=== PATIENT | female | born 1940 | race Caucasian/White ===

== ENCOUNTER 2016-10-17 12:56 | Inpatient (IN) | payer MEDICARE, OTHER ==
[~2016-10-17] VITALS: Ht 154.9 cm; Wt 74.2 kg
[2016-10-17] MEDS ORDERED: VITA10002 PO (13:35)
[2016-10-17] MEDS ORDERED: EVEN10003 PO (13:35)
[2016-10-17] MEDS ORDERED: MAGNSOL PO (13:35)
[2016-10-17] MEDS ORDERED: VITA100T98 PO (13:35)
[2016-10-17] MEDS ORDERED: DEXI60CA PO (13:35)
[2016-10-17] MEDS ORDERED: AMIL5TA PO (13:35)
[2016-10-17] MEDS ORDERED: CO Q100C10 PO (13:35)
[2016-10-17] MEDS ORDERED: VENL37CA PO (13:35)
[2016-10-17] MEDS ORDERED: TURM500C3 PO (13:35)
[2016-10-17] MEDS ORDERED: LOSA50TA20 PO (13:35)
[2016-10-17] MEDS ORDERED: ATEN25TA PO (13:35)
[2016-10-17] MEDS ORDERED: MILK175C7 PO (13:35)
[2016-10-17] MEDS ORDERED: VITA50003 PO (13:35)
[2016-10-17] MEDS ORDERED: ESTR3TA PO (13:35)
[2016-10-17] MEDS ORDERED: CALC600T10 PO (13:35)
[2016-10-17] MEDS ORDERED: VITA-130 PO (13:35)
--- NOTE | 2016-10-17 13:36 | REP ---
CT HEAD WITHOUT CONTRAST: HISTORY: Headache. There is no intraparenchymal hemorrhage, mass, or midline shift. The ventricular system and cortical sulci are dilated consistent with minimal volume loss. There is no extracerebral collection. Mucosal thickening is present in the ethmoid sinuses. IMPRESSION: Minimal volume loss. Signed by Francisco Jamison MD 10/17/2016 01:46 P
[2016-10-17] MEDS ORDERED: METOCLOPRAMIDE INJ 10MG/2ML VIAL (J2765) IV ONE (13:45)
[2016-10-17] MEDS ORDERED: NS 500 ML IV ONE (13:45)
[2016-10-17] MEDS ORDERED: diphenhydrAMINE INJ 50MG/ML VIAL (J1200) IV ONE (13:45)
[2016-10-17 13:57] LABS: BASO % 0.3 % (0.0-1.0); EOS # 0.2 K/mm3 (0.0-0.50); EOS % 1.5 % (0.0-3.0); LARGE UNSTAINED CELL # 0.1 K/mm3 (0.0-0.4); LARGE UNSTAINED CELL % 1.2 % (0.0-4.0); LYMPH # 2.5 K/mm3 (1.5-4.5); MEAN CORPUSCULAR HEMOGLOBIN 30.2 pg (27.0-33.0); MEAN CORPUSCULAR HGB CONC 32.2 g/dl (32.0-36.5); MEAN CORPUSCULAR VOLUME 93.7 fl (80.0-96.0); MONO # 0.5 K/mm3 (0.0-0.8); MONO % 5.2 % (0.0-5.0); NEUTROPHILS # 6.4 K/mm3 (1.8-7.7); NEUTROPHILS % 66.8 % (36.0-66.0); PLATELET COUNT, AUTOMATED 213 k/mm3 (150-450); WHITE BLOOD COUNT 9.6 K/mm3 (4.0-10.0)
[2016-10-17 14:11] LABS: INR 0.96
[2016-10-17 14:24] LABS: ALBUMIN/GLOBULIN RATIO 1.38 (1.00-1.93); ALKALINE PHOSPHATASE 82 U/L (45-117); ALT/SGPT 26 U/L (12-78); ANION GAP 10 MEQ/L (8-16); AST/SGOT 14 U/L (15-37); BILIRUBIN,DIRECT < 0.1 MG/DL (0.0-0.2); BILIRUBIN,TOTAL 0.2 MG/DL (0.2-1.0); BLOOD UREA NITROGEN 17 MG/DL (7-18); CALCIUM LEVEL 8.8 MG/DL (8.8-10.2); CARBON DIOXIDE LEVEL 26 MEQ/L (21-32); CHLORIDE LEVEL 104 MEQ/L (98-107); CREATININE FOR GFR 0.77 MG/DL (0.55-1.02); GLOMERULAR FILTRATION RATE > 60.0 (>39); GLUCOSE, FASTING 126 MG/DL (83-110); POTASSIUM SERUM 4.6 MEQ/L (3.5-5.1); SODIUM LEVEL 140 MEQ/L (136-145); TOTAL PROTEIN 6.9 GM/DL (6.4-8.2)
--- NOTE | 2016-10-17 15:02 | REP ---
PORTABLE CHEST: AP portable view of the chest is performed. There is cardiomegaly. There is calcification and tortuosity of the thoracic aorta. The mediastinal silhouette otherwise appears unremarkable. There is no acute infiltrate or pulmonary edema. IMPRESSION: Cardiomegaly. No acute infiltrate or pulmonary edema. Signed by Nagi Kong MD 10/17/2016 04:18 P
[2016-10-17] MEDS ORDERED: ONDANSETRON 4MG/2ML VIAL (J2405) IV PRN (17:00)
[2016-10-17] MEDS ORDERED: MAGN100T PO (17:02)
[2016-10-17] MEDS ORDERED: ADVI200T PO (17:02)
--- NOTE | 2016-10-17 17:38 | ECGEPIP ---
Stationary ECG Study [facility] - ED Test Date: 2016-10-17 Pat Name: TRAMAINE HERRON Department: Room: - Gender: F Rn Clinical: ct : 1940 Requested By: NATACHA DE JESUS Order Number: [id number] Reading MD: Jermaine Matthews Measurements Intervals [place] Rate: 75 P: 25 IA: 189 QRS: -47 QRSD: 85 T: 7 QT: 414 QTc: 465 Interpretive Statements SINUS RHYTHM NSTTW ABNORMALITIES NO PRIORS Electronically Signed On 10-17-2016 17:38:41 EDT by Jermaine Matthews
[2016-10-17] MEDS ORDERED: KETOROLAC 30 MG/ML VIAL (J1885) IV ONE (18:00)
--- NOTE | 2016-10-17 18:10 | HPEPDOC ---
General Date of Admission 10/17/2016 Primary Care Physician: FLORENTIN MACKEY DO Attending Physician: FRANCIS DÍAZ MD Chief Complaint The patient is a 76-year-old female admitted with a reason for visit of h/a, vomiting. Source: Patient, Family, RN notes reviewed, Old records Exam Limitations: No limitations Timing/Duration: This morning Associated Symptoms: Headaches (top of head and down back of neck with left eye involvement causing blurriness), Nausea, Vomiting (3 episodes) History of Present Illness Ms. Rodgers is a 76-year-old female who presents to [facility]'s emergency Department with confusion and vomiting. She is accompanied by her , her daughter, and her son-in-law. Patient is alert and oriented 4. Past medical history significant for hypertension, confusional migraines, gastroesophageal reflux disease, left cataract, history of hiatal hernia, history of gastric polyps, history of diverticulosis, history of hemorrhoids, history of colonic polyps, L5-S1 dichotomy. Patient states that she woke up this morning and was eating breakfast when her headache started. She reports that it is on the top of her head and radiates down the back of her neck and behind her eye, specifically her left eye with associated blurriness. She denies acute vision loss, diplopia. She admits to vomiting the contents of her stomach and has vomited 3 times. Family admits to increased and worsening confusion. They report that patient has a history of confusion, but that this episode is more severe than prior episodes. patient contacted daughter who came over. She states that when she approached her mother she initially did not recognize her. Family reports the patient did not recognize her granddaughter. Patient reports approximately 4-5 episodes of confusion with the first episode of confusion that occurred about 8-9 years ago when they were summering down in [place] and she did not recognize her own clothes in the cupboard. Her stated that this episode lasted about an hour and then she returned to her normal state of mind. Family and patient do state that she is able to remember her states of confusion. However, this episode of confusion today is something that she is not able to remember currently. She admits to nausea, night sweats, chills. Denies changes to taste, lymphadenopathy, weakness, dizziness, lightheadedness, paroxysmal nocturnal dyspnea, orthopnea. Patient does report that his ocular has been ill for the last 3 weeks with vomiting and diarrhea. States that the diarrhea is watery, mucousy, and bloody. She reports that this all started on 09/14/2016 and ended approximately a week ago. Patient reports a cough as well as sinus pressure. Initially presented to their primary care provider's office and were informed that they also be having a viral infection. Patient reports using cough syrup, soup for symptomatic relief and reports that she slept a lot. Also reports that she decreased taste. Patient says that her fluid intake has been decreased recently. Family does report the patient has been under an undue amount of stress as has recently been battling prostate cancer and a son just recently had a kidney removed secondary to kidney cancer. Hospitalist service was subsequently consulted and patient was admitted for further medical management. Home Medications Scheduled (Dexilant) 60 Mg Cap 60 MG PO DAILY (Reported) (Co Q 10) 100 Mg Cap 200 MG PO BID (Reported) Amiloride HCl (Amiloride HCl) 5 Mg Tab 5 MG PO DAILY (Reported) Ascorbic Acid (Vitamin C) 500 Mg Tab 500 MG PO DAILY (Reported) Atenolol (Atenolol) 25 Mg Tab 50 MG PO DAILY (Reported) Calcium (Calcium) 600 Mg Tab 600 MG PO QHS (Reported) Conjugated Estrogens (Premarin) 0.3 Mg Tab 0.3 MG PO Q2D (Reported) QHS Curcuma Longa (Turmeric) Extra (Turmeric) 500 Mg Cap 500 MG PO DAILY (Reported ) Cyanocobalamin (Vitamin B-12) 1,000 Mcg Tab 1,000 MCG PO DAILY (Reported) Ergocalciferol (Vitamin D) 50,000 Unit Cap 50,000 UNIT PO QWEEK (Reported) TAKES ON THURSDAYS Evening [place] Oil (Evening [place] Oil) 1,000 Mg Cap 1,000 MG PO QHS ( Reported) Ibuprofen (Advil) 200 Mg Tab 400 MG PO QHS (Reported) Losartan Potassium (Losartan Potassium) 50 Mg Tab 50 MG PO BID (Reported) Magnesium Citrate (Magnesium Citrate) 100 Mg Tab 100 MG PO QHS (Reported) Riboflavin (Vitamin B-2) 100 Mg Tab 100 MG PO BID (Reported) Silybum Marianum (Milk Thistle) 175 Mg Cap 175 MG PO DAILY (Reported) Venlafaxine HCl (Venlafaxine HCl ER) 37.5 Mg Cap 37.5 MG PO BID (Reported) Allergies Coded Allergies: Sulfa Antibiotics (Unverified Allergy, Unknown, 10/17/16) Erythromycin (Unverified Adverse Reaction, Unknown, VOMIT, 10/17/16) Past Medical History Medical History 1. Hypertension 2. Confusional migraines 3. Left cataract 4. Gastroesophageal reflux disease 5. History of nonbleeding internal hemorrhoids 6. History of gastric polyps 7. Hiatal hernia 8. Diverticulosis 9. History of colonic polyps Surgical History 1. Cholecystectomy 2. Heart catheterization 3. Appendectomy 4. Tonsillectomy 5. Hysterectomy 6. Peng procedure 7. Partial thyroidectomy 8. Back surgeries 9. Eyelid surgery 10. Colonoscopies 11. EGD Family History Significant Family History: Cancer (mother - colon and hepatic cancer; brother - pancreatic cancer), Diabetes (Brother), Heart disease (Brother - multiple pacemaker defibrillators), Hypertension (Brother), Other (Brother - multiple sclerosis) Social History * Smoker: former Smoker (remote history) Alcohol: other (2 glasses of red wine per evening) Recent Travel/Sick Contacts: Denies: Recent sick contacts, Recent travel Psychosocial History: Anxiety, Depression Lives independently with 5 adult children Denies pets in the home Denies environmental exposures Review of Symptoms Constitutional: Reports: Chills, Night Sweats, Denies: Fever, Weakness Eyes: Reports: Other (denies acute transient vision loss, peripheral vision loss, central vision loss, diplopia), Vision change (blurry vision) ENT: Reports: Head Aches (topic of head radiating down back of neck), Sinus Congestion Skin: Denies: Lesions, Rash Pulmonary: Reports: Cough, Dyspnea (with exertion), Denies: Pleuritic Chest Pain Cardiovascular: Denies: Chest Pain, Edema, Lt Headedness, Orthopnea, Palpitations, Paroxysmal Noc. Dyspnea Gastrointestinal: Reports: Diarrhea (recently improved), Nausea, Other Symptoms (hemorrhoidal bleeding (blood on TP)), Vomiting (contents of stomach), Denies: Abdominal Pain, Constipation, Hematochezia, Melena Genitourinary: Reports: Frequency (secondary to fluid intake of 80 - 100 ounces of water daily), Denies: Dysuria, Hematuria, Incontinence Hematologic: Denies: Bruising, Purpura Endocrine: Reports: Polydipsia Musculoskeletal: Reports: Back Pain, Neck Pain, Denies: Joint Pain, Muscle Pain Neurological: Reports: Confusion, Denies: Numbness, Weakness Psych: Reports: Anxiety, Depression Physical Examination General Exam: Positive: Alert, Cooperative, No Acute Distress Eye Exam: Positive: Conjunctiva & lids normal, EOMI, PERRLA, Negative: Sclera icteric ENT Exam: Positive: Atraumatic, Nares Patent, Pharynx Normal, Tongue Midline, Negative: Mucous membr. moist/pink (somewhat dry), Pharyngeal Edema Neck Exam: Positive: Supple, Negative: JVD, Lymphadenopathy, thyromegaly Chest Exam: Positive: Clear to auscultation, Normal air movement Heart Exam: Positive: Normal S1, Normal S2, Rate Normal, Regular Rhythm, Negative: Murmurs, Rubs Telemetry: Positive: No significant arrhythmia, Sinus Abdomen Exam: Positive: Normal bowel sounds, Soft, Negative: Hepatospenomegaly, Hernia, Mass, Tenderness Extremity Exam: Positive: Normal pulses, Negative: Clubbing, Cyanosis, Edema, Swelling, Tenderness Skin Exam: Positive: Nl turgor and temperature Neuro Exam: Positive: Cranial Nerves 3-12 NL, Normal Speech, Strength at 5/5 X4 ext Psych Exam: Positive: Oriented x [address] head without contrast IMPRESSION: Minimal volume loss Portable chest x-ray IMPRESSION: Cardiomegaly. No acute infiltrate or pulmonary edema. Vital Signs T 96.9 HR 80 RR 18 BP 169/71 O2 98% RA Height (in): 61 Weight (kg): 68.039 BMI (kg): 28.3 Laboratory Data Labs 24H Laboratory Tests 2 10/17/16 13:46: Aspartate Amino Transf (AST/SGOT) 14L, Alanine Aminotransferase (ALT/SGPT) 26, Alkaline Phosphatase 82, Total Bilirubin 0.2, Direct Bilirubin < 0.1, Albumin 4.0, Albumin/Globulin Ratio 1.38, Anion Gap 10, White Blood Count 9.6, Red Blood Count 4.15, Hemoglobin 12.5, Hematocrit 38.9, Mean Corpuscular Volume 93.7 , Mean Corpuscular Hemoglobin 30.2, Mean Corpuscular Hemoglobin Concent 32.2, Red Cell Distribution Width 13.0, Platelet Count 213, Neutrophils (%) (Auto) 66.8H, Lymphocytes (%) (Auto) 25.0, Monocytes (%) (Auto) 5.2H, Eosinophils (%) ( Auto) 1.5, Basophils (%) (Auto) 0.3, Neutrophils # (Auto) 6.4, Lymphocytes # ( Auto) 2.5, Monocytes # (Auto) 0.5, Eosinophils # (Auto) 0.2, Basophils # (Auto) 0.0, Calcium Level 8.8, Creatine Kinase MB 1.5, Creatine Kinase MB Relative Index 2.00, Glomerular Filtration Rate > 60.0, Large Unclassified Cells # 0.1, Large Unclassified Cells % 1.2, Prothromb Time International Ratio 0.96, Prothrombin Time 12.9, Thyroid Stimulating Hormone (TSH) 2.280, Total Creatine Kinase 75, Total Protein 6.9, Troponin I < 0.02 CBC/BMP Laboratory Tests 10/17/16 13:46 Red Blood Count 4.15, Mean Corpuscular Volume 93.7, Mean Corpuscular Hemoglobin 30.2, Mean Corpuscular Hemoglobin Concent 32.2, Red Cell Distribution Width 13.0 , Neutrophils (%) (Auto) 66.8 H, Lymphocytes (%) (Auto) 25.0, Monocytes (%) ( Auto) 5.2 H, Eosinophils (%) (Auto) 1.5, Basophils (%) (Auto) 0.3, Neutrophils # (Auto) 6.4, Lymphocytes # (Auto) 2.5, Monocytes # (Auto) 0.5, Eosinophils # ( Auto) 0.2, Basophils # (Auto) 0.0 Assessment/Plan Ms. Rodgers is a 76 year old female with a past medical history significant for hypertension and confusional migraines who presents with confusion is likely secondary to an acute complex migraine attack. Problems (1) Acute confusional migraine Status: Acute Problem Text: The patient has a history of confusional migraines Responded well to acute abortive treatment in the emergency department Intravenous fluid resuscitation with normal saline 50 mLs per hour Consider infectious causes - Obtain blood and urine cultures - Obtain gastrointestinal panel - Obtain respiratory panel Consider metabolic sources - Obtain liver profile - Obtain TSH - Obtain ESR Consider fluid and electrolyte disturbances - Received 500 mL bolus of intravenous normal saline in the emergency department - Monitor BMP (2) Hypertension Status: Chronic Problem Text: Continue her medications Monitor vital signs (3) Anxiety and depression Status: Chronic Problem Text: Continue home medication Plan / VTE VTE Prophylaxis Ordered?: Yes (Lovenox 40 mg subcutaneous daily) Plan Plan Acute confusional migraine Patient has a history of confusional migraine. CT of the head without contrast, chest x-ray, and EKG revealed nothing significant. Patient responded well in the emergency department to metoclopramide diphenhydramine. Administered one- time dose of Toradol in the emergency department to help alleviate patient's severe headache. Investigate other potential causes of acute confusion, such as infectious causes by obtaining a respiratory panel, gastrointestinal panel, blood cultures, and urine cultures. Also consider metabolic causes for confusion and will obtain liver profile, TSH, and ESR. Monitor patient's vital signs, CBC, and BMP. Could consider obtaining an MRI of the brain if patient's confusion returns or worsens. Providing intravenous fluid resuscitation with normal saline at 50 mLs per hour as patient appeared somewhat dry on physical assessment. Hypertension Patient's blood pressure at time of presentation was 169/71. We'll continue patient's amiloride, atenolol, and losartan. Continue to monitor daily vital signs. Anxiety and depression Continue patient's on her home medication. DVT prophylaxis: Lovenox 40 mg subcutaneous daily Diet: 2 g sodium Disposition Admit to the medical surgical unit Anticipated hospitalization: 2 nights Attending: Dr. Bhatti IVF: Initiate (normal saline at 50 mLs per hour) Diet: Continue Current (2 g sodium diet) Activity: Continue Current (activity as tolerated) Diagnostics: Check Labs, Repeat Labs in AM, Obtain Cultures Anticipated Discharge: Home TRAMAINE CEVALLOS Oct 17, 2016 18:10
[2016-10-17] MEDS ORDERED: NS 1,000 ML IV SCH (18:15)
--- NOTE | 2016-10-17 20:00 | REPUSA ---
MRI of the brain clinical history: headache. Technique: Multiecho multiplanar MRI images of the brain were obtained without administration of cont rast. Diffusion weighted images with ADC mapping was also obtained. Findings: The ventricles and sulci are symmetric bilaterally. The brain parenchyma demonstrates a few scattered foci of T2 hyperintensity in the subcortical white matter. There is no midline shift, mass effect, o r extra-axial fluid collection. The midline intracranial structures do not demonstrate any gross abno rmalities. The cervical cranial junction is intact. The orbits are unremarkable. The visualized paran simona sinuses and mastoid air cells are clear. The osseous structures and superficial soft tissues are unremarkable. The vascular structures demonstrate appropriate flow voids. Impression: No evidence of acute infarct. Minimal chronic small vessel ischemic changes. The ICU nurse was notified of these findings at 7:50 PM on 10/17/2016.
[2016-10-17 20:10] VITALS: BP 153/70
[2016-10-17] MEDS: CYANOCOBALAMIN 500 MCG TAB PO SCH (20:38)
[2016-10-17] MEDS: ATENOLOL 25 MG TAB PO SCH (20:39)
[2016-10-17] MEDS: LOSARTAN 50 MG TAB PO SCH (20:39)
[2016-10-17] MEDS: ASCORBIC ACID 500 MG TAB PO SCH (20:39)
[2016-10-17] MEDS: ENOXAPARIN 40 MG/0.4 ML SYRINGE (J1650) SC SCH (20:39)
[2016-10-17 20:50] LABS: ALBUMIN 3.6 GM/DL (3.2-5.2); ALBUMIN/GLOBULIN RATIO 1.71 (1.00-1.93); BILIRUBIN,DIRECT 0.1 MG/DL (0.0-0.2); BILIRUBIN,TOTAL 0.2 MG/DL (0.2-1.0); TOTAL PROTEIN 5.7 GM/DL (6.4-8.2)
[2016-10-17] MEDS ORDERED: ESTROGENS 0.3 MG TAB PO SCH (21:00)
[2016-10-17] MEDS: VENLAFAXINE **XR** 37.5 MG CAPSULE PO SCH (21:22)
[2016-10-17] MEDS: aMILoride 5 MG TAB PO SCH (21:22)
[2016-10-18 06:00] VITALS: BP 108/61
[2016-10-18 06:21] LABS: MEAN CORPUSCULAR HEMOGLOBIN 30.4 pg (27.0-33.0); MEAN CORPUSCULAR VOLUME 94.8 fl (80.0-96.0); RED CELL DISTRIBUTION WIDTH 13.1 % (11.5-14.5); WHITE BLOOD COUNT 7.3 K/mm3 (4.0-10.0)
[2016-10-18 06:30] LABS: ANION GAP 4 MEQ/L (8-16); BLOOD UREA NITROGEN 15 MG/DL (7-18); CALCIUM LEVEL 7.9 MG/DL (8.8-10.2); CARBON DIOXIDE LEVEL 30 MEQ/L (21-32); CHLORIDE LEVEL 107 MEQ/L (98-107); CREATININE FOR GFR 0.81 MG/DL (0.55-1.02); GLOMERULAR FILTRATION RATE > 60.0 (>39); GLUCOSE, FASTING 105 MG/DL (83-110); POTASSIUM SERUM 4.2 MEQ/L (3.5-5.1); SODIUM LEVEL 141 MEQ/L (136-145)
--- NOTE | 2016-10-18 08:55 | DS.PDOC ---
Discharge Summary General Date of Admission Oct 17, 2016 at 17:50 Date of Discharge 10/18/16 Attending Physician: FLORENTIN MACKEY DO Discharge Summary PROCEDURES PERFORMED DURING STAY: [None]. DISCHARGE DIAGNOSES: 1. Hypertension 2. Confusional migraines 3. Left cataract 4. Gastroesophageal reflux disease 5. History of nonbleeding internal hemorrhoids 6. History of gastric polyps 7. Hiatal hernia 8. Diverticulosis 9. History of colonic polyps CHIEF COMPLAINT: Atypical Migraine. HISTORY OF PRESENT ILLNESS: 76-year old female for confusional migraine. Please refer to H&P for full details. HOSPITAL COURSE: Patient admitted for confusional migraines. Symptoms resolved while in ER. All imaging unremarkable for acute pathology. All laboratory work unrevealing to date. Case discussed with neurology. Hospital stay unremarkable. Patient discharged home with instructions as indicated. DISCHARGE MEDICATIONS: Please see below. ALLERGIES: Please see below. PHYSICAL EXAMINATION ON DISCHARGE: VITAL SIGNS: Please see below. GENERAL: NAD HEENT: NC/AT, EOMI, PERRL NECK: supple CARDIOVASCULAR EXAMINATION: +S1S2, RRR RESPIRATORY EXAMINATION: CTA B/L ABDOMINAL EXAMINATION: soft, NT, +BS EXTREMITIES: no edema SKIN: no rashes NEUROLOGICAL EXAMINATION: no gross focal deficits, sensation intact throughout, strength 5/5 B/L upper/lower extremities, face symmetric PSYCHIATRIC EXAMINATION: AAOx3 LABORATORY DATA: Please see below. IMAGING: MRI Brain Impression: No evidence of acute infarct. Minimal chronic small vessel ischemic changes. CT Head IMPRESSION: Minimal volume loss. ACTIVITY: [As tolerated]. DIET: 2 gram sodium DISPOSITION: Discharge Home: DISCHARGE INSTRUCTIONS: 1. Follow up PCP in 3-5 days. 2. Follow up neurology in 1-2 weeks. DISCHARGE CONDITION: [Stable]. TIME SPENT ON DISCHARGE: Greater than 30 minutes. Vital Signs/I&Os Vital Signs Date Time Temp Pulse Resp B/P Pulse Ox O2 Delivery O2 Flow Rate FiO2 10/18/16 06:00 97.7 67 16 108/61 92 Room Air I&O- Last 24 Hours up to 6 AM 10/18/16 06:00 Intake Total 480 ml Output Total 250 ml Balance 230 ml Laboratory Data Labs 24H Laboratory Tests 2 10/17/16 13:46: Aspartate Amino Transf (AST/SGOT) 14L, Alanine Aminotransferase (ALT/SGPT) 26, Alkaline Phosphatase 82, Total Bilirubin 0.2, Direct Bilirubin < 0.1, Albumin 4.0, Albumin/Globulin Ratio 1.38, Anion Gap 10, White Blood Count 9.6, Red Blood Count 4.15, Hemoglobin 12.5, Hematocrit 38.9, Mean Corpuscular Volume 93.7 , Mean Corpuscular Hemoglobin 30.2, Mean Corpuscular Hemoglobin Concent 32.2, Red Cell Distribution Width 13.0, Platelet Count 213, Neutrophils (%) (Auto) 66.8H, Lymphocytes (%) (Auto) 25.0, Monocytes (%) (Auto) 5.2H, Eosinophils (%) ( Auto) 1.5, Basophils (%) (Auto) 0.3, Neutrophils # (Auto) 6.4, Lymphocytes # ( Auto) 2.5, Monocytes # (Auto) 0.5, Eosinophils # (Auto) 0.2, Basophils # (Auto) 0.0, Calcium Level 8.8, Creatine Kinase MB 1.5, Creatine Kinase MB Relative Index 2.00, Glomerular Filtration Rate > 60.0, Large Unclassified Cells # 0.1, Large Unclassified Cells % 1.2, Prothromb Time International Ratio 0.96, Prothrombin Time 12.9, Thyroid Stimulating Hormone (TSH) 2.280, Total Creatine Kinase 75, Total Protein 6.9, Troponin I < 0.02 10/17/16 20:06: Erythrocyte Sedimentation Rate 9 10/17/16 20:07: Aspartate Amino Transf (AST/SGOT) 10L, Alanine Aminotransferase (ALT/SGPT) 23, Alkaline Phosphatase 75, Total Bilirubin 0.2, Direct Bilirubin 0.1, Albumin 3.6 , Albumin/Globulin Ratio 1.71, Thyroid Stimulating Hormone (TSH) 5.320H, Total Protein 5.7L, Ammonia 23 10/17/16 20:52: Urine Amorphous Sediment , Urine Appearance HAZY, Urine Color YELLOW, Urine pH 6.0, Urine Specific Felda 1.015, Urine Protein NEGATIVE, Urine Glucose (UA) NEGATIVE, Urine Ketones NEGATIVE, Urine Urobilinogen 0.2, Urine Bilirubin NEGATIVE, Urine Leukocyte Esterase NEGATIVE, Urine Bacteria (Auto) 1+H, Urine Blood NEGATIVE, Urine Calcium Carbonate Cryst(Auto) , Urine Calcium Oxalate Cryst (Auto) , Urine Calcium Phosphate Frida (Auto) , Urine Cellular Casts , Urine Cystine Crystals , Urine Granular Casts (Auto) , Urine Hyaline Casts (Auto ) 7, Urine Leucine Crystals , Urine Mucus (Auto) SMALL, Urine Nitrite NEGATIVE, Urine Oval Fat Bodies (Auto) , Urine RBC (Auto) 2, Urine Renal Epithelial Cells , Urine Sperm (Auto) , Urine Squamous Epithelial Cells 2, Urine Transitional Epithelial Cells , Urine Trichomonas (Auto) , Urine Triple Phosphate Cryst (Auto ) , Urine Tyrosine Crystals , Urine Uric Acid Crystals (Auto) , Urine WBC (Auto ) 7H, Urine Waxy Casts (Auto) , Urine Yeast-Like Cells (Auto) 10/18/16 05:55: Anion Gap 4L, Blood Urea Nitrogen 15, Creatinine 0.81, Sodium Level 141, Potassium Level 4.2, Chloride Level 107, Carbon Dioxide Level 30, Calcium Level 7.9L, Glomerular Filtration Rate > 60.0 CBC/BMP Laboratory Tests 10/17/16 13:46 Red Blood Count 4.15, Mean Corpuscular Volume 93.7, Mean Corpuscular Hemoglobin 30.2, Mean Corpuscular Hemoglobin Concent 32.2, Red Cell Distribution Width 13.0 , Neutrophils (%) (Auto) 66.8 H, Lymphocytes (%) (Auto) 25.0, Monocytes (%) ( Auto) 5.2 H, Eosinophils (%) (Auto) 1.5, Basophils (%) (Auto) 0.3, Neutrophils # (Auto) 6.4, Lymphocytes # (Auto) 2.5, Monocytes # (Auto) 0.5, Eosinophils # ( Auto) 0.2, Basophils # (Auto) 0.0 10/18/16 05:55 Red Blood Count 3.49 L, Mean Corpuscular Volume 94.8, Mean Corpuscular Hemoglobin 30.4, Mean Corpuscular Hemoglobin Concent 32.0, Red Cell Distribution Width 13.1, Calcium Level 7.9 L Microbiology Microbiology 10/17/16 Blood Culture, Received Pending 10/17/16 Blood Culture, Received Pending 10/17/16 Respiratory Virus Panel (PCR) (BALA) - Final, Complete 10/17/16 Urine Culture, Received Pending Discharge Medications Scheduled (Dexilant) 60 Mg Cap 60 MG PO DAILY (Reported) (Co Q 10) 100 Mg Cap 200 MG PO BID (Reported) Amiloride HCl (Amiloride HCl) 5 Mg Tab 5 MG PO DAILY (Reported) Ascorbic Acid (Vitamin C) 500 Mg Tab 500 MG PO DAILY (Reported) Atenolol (Atenolol) 25 Mg Tab 50 MG PO DAILY (Reported) Calcium (Calcium) 600 Mg Tab 600 MG PO QHS (Reported) Conjugated Estrogens (Premarin) 0.3 Mg Tab 0.3 MG PO Q2D (Reported) QHS Curcuma Longa (Turmeric) Extra (Turmeric) 500 Mg Cap 500 MG PO DAILY (Reported ) Cyanocobalamin (Vitamin B-12) 1,000 Mcg Tab 1,000 MCG PO DAILY (Reported) Ergocalciferol (Vitamin D) 50,000 Unit Cap 50,000 UNIT PO QWEEK (Reported) TAKES ON THURSDAYS Evening [place] Oil (Evening [place] Oil) 1,000 Mg Cap 1,000 MG PO QHS ( Reported) Ibuprofen (Advil) 200 Mg Tab 400 MG PO QHS (Reported) Losartan Potassium (Losartan Potassium) 50 Mg Tab 50 MG PO BID (Reported) Magnesium Citrate (Magnesium Citrate) 100 Mg Tab 100 MG PO QHS (Reported) Riboflavin (Vitamin B-2) 100 Mg Tab 100 MG PO BID (Reported) Silybum Marianum (Milk Thistle) 175 Mg Cap 175 MG PO DAILY (Reported) Venlafaxine HCl (Venlafaxine HCl ER) 37.5 Mg Cap 37.5 MG PO BID (Reported) Allergies Coded Allergies: Sulfa Antibiotics (Unverified Allergy, Unknown, 10/17/16) Erythromycin (Unverified Adverse Reaction, Unknown, VOMIT, 10/17/16) SHELLY LAYTON MD Oct 18, 2016 08:55
[2016-10-18] MEDS: ENOXAPARIN 40 MG/0.4 ML SYRINGE (J1650) SC SCH (09:00)
[2016-10-18] MEDS: CYANOCOBALAMIN 500 MCG TAB PO SCH (09:10)
[2016-10-18] MEDS: aMILoride 5 MG TAB PO SCH (09:10)
[2016-10-18] MEDS: VENLAFAXINE **XR** 37.5 MG CAPSULE PO SCH (09:10)
[2016-10-18] MEDS: ATENOLOL 25 MG TAB PO SCH (09:10)
[2016-10-18 09:11] VITALS: BP 108/61
[2016-10-18] MEDS: ASCORBIC ACID 500 MG TAB PO SCH (09:11)
[2016-10-18] MEDS: LOSARTAN 50 MG TAB PO SCH (09:11)
[2016-10-23] MEDS ORDERED: VITAMIN D 50,000 UNITS CAPSULE (ERGOCALCIFEROL 1.25MG) PO SCH (17:00)
== END 2016-10-18 14:06 | disposition home or self-care (01) | DRG 103 ==
LOC: EDBD 12:56 → M ED 14:11 → M ED INP 17:50 → M MSPAV 20:09
PROVIDERS: ADMIT Internal Medicine; ATTEND Internal Medicine
DX: G43.809 Other migraine, not intractable, without status migrainosus (principal); I10 Essential (primary) hypertension; K21.9 Gastro-esophageal reflux disease without esophagitis; K44.9 Diaphragmatic hernia without obstruction or gangrene; H26.9 Unspecified cataract; K57.90 Diverticulosis of intestine, part unspecified, without perforation or abscess without bleeding; K64.8 Other hemorrhoids; F41.8 Other specified anxiety disorders; K63.5 Polyp of colon; Z79.899 Other long term (current) drug therapy; Z88.2 Allergy status to sulfonamides; Z88.1 Allergy status to other antibiotic agents; Z90.49 Acquired absence of other specified parts of digestive tract; Z90.710 Acquired absence of both cervix and uterus; Z83.3 Family history of diabetes mellitus; Z82.49 Family history of ischemic heart disease and other diseases of the circulatory system; Z80.0 Family history of malignant neoplasm of digestive organs; Z80.7 Family history of other malignant neoplasms of lymphoid, hematopoietic and related tissues; Z87.891 Personal history of nicotine dependence; R41.0 Disorientation, unspecified

== ENCOUNTER → 2016-10-27 | Outpatient (CLI) | payer MEDICARE, OTHER ==
[~2016-10-27] MED LIST: ADVI200T PO; AMIL5TA PO; ATEN25TA PO; CALC600T10 PO; CO Q100C10 PO; DEXI60CA PO; ESTR3TA PO; EVEN10003 PO; LOSA50TA20 PO; MAGN100T PO; MAGNSOL PO; MILK175C7 PO; TURM500C3 PO; VENL37CA PO; VITA-130 PO; VITA10002 PO; VITA100T98 PO; VITA50003 PO
--- NOTE | 2016-10-27 15:51 | REP ---
Bilateral carotid artery duplex ultrasound: Peak flow velocity analysis: RIGHT LEFT ICA. Peak flow velocity cm/sec 56 58 ICA Diastolic flow velocity cm/sec 20 14 ICA/CCA Ratio 0.79 0.78 There is intimal thickening bilaterally. Peak flow velocities are normal bilaterally. There is no stenosis on the right or the left. There is antegrade flow in the vertebral arteries bilaterally. Impression: There is no stenosis on the right or the left. Signed by Nagi Ledesma MD 10/27/2016 03:42 P
== END ==
LOC: M RAD 14:48
PROVIDERS: ATTEND Family Medicine
DX: R42 Dizziness and giddiness (principal); Z79.899 Other long term (current) drug therapy; I10 Essential (primary) hypertension; E78.2 Mixed hyperlipidemia; E55.9 Vitamin D deficiency, unspecified

== ENCOUNTER → 2016-10-27 | Outpatient (CLI) | payer MEDICARE, OTHER ==
[2016-10-27 14:10] LABS: MEAN CORPUSCULAR HEMOGLOBIN 30.1 pg (27.0-33.0); MEAN CORPUSCULAR HGB CONC 31.4 g/dl (32.0-36.5); MEAN CORPUSCULAR VOLUME 95.8 fl (80.0-96.0); RED CELL DISTRIBUTION WIDTH 13.5 % (11.5-14.5); WHITE BLOOD COUNT 7.9 K/mm3 (4.0-10.0)
[2016-10-27 14:58] LABS: ALBUMIN 4.1 GM/DL (3.2-5.2); ALBUMIN/GLOBULIN RATIO 1.78 (1.00-1.93); ALKALINE PHOSPHATASE 84 U/L (45-117); ALT/SGPT 31 U/L (12-78); ANION GAP 8 MEQ/L (8-16); AST/SGOT 13 U/L (15-37); BILIRUBIN,TOTAL 0.4 MG/DL (0.2-1.0); BLOOD UREA NITROGEN 15 MG/DL (7-18); CALCIUM LEVEL 8.6 MG/DL (8.8-10.2); CARBON DIOXIDE LEVEL 28 MEQ/L (21-32); CHLORIDE LEVEL 102 MEQ/L (98-107); CHOLESTEROL LEVEL 208 MG/DL (<200); CREATININE FOR GFR 0.86 MG/DL (0.55-1.02); FREE T4 0.99 NG/DL (0.76-1.46); GLOMERULAR FILTRATION RATE > 60.0 (>39); GLUCOSE, FASTING 112 MG/DL (83-110); POTASSIUM SERUM 4.7 MEQ/L (3.5-5.1); SODIUM LEVEL 138 MEQ/L (136-145); TOTAL PROTEIN 6.4 GM/DL (6.4-8.2); TRIGLYCERIDES LEVEL 95 MG/DL (<150)
== END ==
LOC: M SMT 10:32
PROVIDERS: ATTEND Physician Assistant
DX: Z00.00 Encounter for general adult medical examination without abnormal findings (principal); I10 Essential (primary) hypertension; E78.2 Mixed hyperlipidemia; E55.9 Vitamin D deficiency, unspecified

== ENCOUNTER → 2017-01-29 | Outpatient (CLI) | payer MEDICARE, OTHER ==
[~2017-01-29] MED LIST changes: -CALC600T10 PO; +CALC600T31 PO; -DEXI60CA PO; +DEXI60CA2 PO; -MAGNSOL PO; +MAGNSOL18 PO; +MILK175C2 PO; -MILK175C7 PO; +VENL37.52 PO; -VENL37CA PO; -VITA-130 PO; +VITA1CAP40 PO; -VITA50003 PO; +VITA500T PO
[2017-01-29 19:10] LABS: ALBUMIN/GLOBULIN RATIO 1.54 (1.00-1.93); ALKALINE PHOSPHATASE 81 U/L (45-117); ALT/SGPT 32 U/L (12-78); ANION GAP 7 MEQ/L (8-16); AST/SGOT 14 U/L (15-37); BILIRUBIN,TOTAL 0.4 MG/DL (0.2-1.0); BLOOD UREA NITROGEN 17 MG/DL (7-18); CARBON DIOXIDE LEVEL 29 MEQ/L (21-32); CHLORIDE LEVEL 103 MEQ/L (98-107); CREATININE FOR GFR 0.75 MG/DL (0.55-1.02); GLOMERULAR FILTRATION RATE > 60.0 (>39); GLUCOSE, FASTING 106 MG/DL (83-110); POTASSIUM SERUM 5.1 MEQ/L (3.5-5.1); SODIUM LEVEL 139 MEQ/L (136-145); TOTAL PROTEIN 6.6 GM/DL (6.4-8.2)
[2017-01-29 20:04] LABS: BASO % 0.6 % (0.0-1.0); EOS # 0.2 K/mm3 (0.0-0.50); EOS % 2.7 % (0.0-3.0); LARGE UNSTAINED CELL # 0.2 K/mm3 (0.0-0.4); LARGE UNSTAINED CELL % 3.3 % (0.0-4.0); LYMPH # 3.3 K/mm3 (1.5-4.5); LYMPH % 43.2 % (24.0-44.0); MEAN CORPUSCULAR HEMOGLOBIN 31.1 pg (27.0-33.0); MEAN CORPUSCULAR HGB CONC 32.6 g/dl (32.0-36.5); MEAN CORPUSCULAR VOLUME 95.5 fl (80.0-96.0); MONO # 0.5 K/mm3 (0.0-0.8); MONO % 7.6 % (0.0-5.0); NEUTROPHILS % 42.5 % (36.0-66.0); PLATELET COUNT, AUTOMATED 221 k/mm3 (150-450); RED CELL DISTRIBUTION WIDTH 13.5 % (11.5-14.5)
== END ==
LOC: M SMT 10:47
PROVIDERS: ATTEND Family Medicine
DX: R73.01 Impaired fasting glucose (principal); D64.9 Anemia, unspecified

== ENCOUNTER → 2017-04-23 | Outpatient (CLI) | payer MEDICARE, OTHER ==
[2017-04-23 17:26] LABS: ALBUMIN 4.2 GM/DL (3.2-5.2); ALBUMIN/GLOBULIN RATIO 1.62 (1.00-1.93); ALKALINE PHOSPHATASE 83 U/L (45-117); ALT/SGPT 26 U/L (12-78); ANION GAP 7 MEQ/L (8-16); AST/SGOT 16 U/L (15-37); BILIRUBIN,TOTAL 0.4 MG/DL (0.2-1.0); BLOOD UREA NITROGEN 13 MG/DL (7-18); CALCIUM LEVEL 9.1 MG/DL (8.8-10.2); CARBON DIOXIDE LEVEL 31 MEQ/L (21-32); CHLORIDE LEVEL 101 MEQ/L (98-107); CREATININE FOR GFR 0.81 MG/DL (0.55-1.02); GLOMERULAR FILTRATION RATE > 60.0 (>39); GLUCOSE, FASTING 104 MG/DL (83-110); POTASSIUM SERUM 4.8 MEQ/L (3.5-5.1); SODIUM LEVEL 139 MEQ/L (136-145); TOTAL PROTEIN 6.8 GM/DL (6.4-8.2)
[2017-04-23 18:05] LABS: BASO % 0.5 % (0.0-1.0); EOS # 0.2 10^3/uL (0.0-0.50); EOS % 2.3 % (0.0-3.0); IMMATURE GRANULOCYTE % 0.3 % (0-0); LYMPH # 4.1 10^3/uL (1.5-4.5); LYMPH % 52.2 % (24.0-44.0); MEAN CORPUSCULAR HEMOGLOBIN 30.7 pg (27.0-33.0); MEAN CORPUSCULAR HGB CONC 32.1 g/dl (32.0-36.5); MEAN CORPUSCULAR VOLUME 95.5 fl (80.0-96.0); MONO # 0.9 10^3/uL (0.0-0.8); NEUTROPHILS # 2.6 10^3/uL (1.8-7.7); NEUTROPHILS % 32.7 % (36.0-66.0); PLATELET COUNT, AUTOMATED 235 10^3/uL (150-450); RED CELL DISTRIBUTION WIDTH 14.1 % (11.5-14.5); WHITE BLOOD COUNT 7.8 10^3/uL (4.0-10.0)
[2017-04-23 18:35] LABS: ADD MORPHOLOGY? NO
== END ==
LOC: M SMT 11:11
PROVIDERS: ATTEND Family Medicine
DX: E73.9 Lactose intolerance, unspecified (principal); I10 Essential (primary) hypertension

== ENCOUNTER → 2017-08-03 | Outpatient (CLI) | payer MEDICARE, OTHER ==
[2017-08-03 14:22] LABS: ANION GAP 5 MEQ/L (8-16); BLOOD UREA NITROGEN 12 MG/DL (7-18); CALCIUM LEVEL 9.2 MG/DL (8.8-10.2); CARBON DIOXIDE LEVEL 31 MEQ/L (21-32); CHLORIDE LEVEL 103 MEQ/L (98-107); CREATININE FOR GFR 0.76 MG/DL (0.55-1.02); GLOMERULAR FILTRATION RATE > 60.0 (>39); GLUCOSE, FASTING 110 MG/DL (83-110); SODIUM LEVEL 139 MEQ/L (136-145)
[2017-08-03 14:26] LABS: POTASSIUM SERUM 5.3 MEQ/L (3.5-5.1); TOTAL 25(OH) VITAMIN D 60.4 NG/ML (30.0-100.0)
[2017-08-03 14:45] LABS: ESTIMATED AVERAGE GLUCOSE 117 MG/DL (60-110); HEMOGLOBIN A1c 5.7 %
== END ==
LOC: M SMT 10:48
DX: E55.9 Vitamin D deficiency, unspecified (principal); R73.9 Hyperglycemia, unspecified
CPT/HCPCS: 83036

== ENCOUNTER 2018-01-11 10:57 | Day surgery (SDC) | payer MEDICARE, OTHER ==
[2018-01-11] MEDS ORDERED: NS 1,000 ML IV (12:30)
[2018-01-11] MEDS ORDERED: PROPOFOL 200 MG/20 ML VIAL As Ordered ×2 (12:50→13:01)
[2018-01-11] MEDS ORDERED: LIDOCAINE 2% INJ 100 MG/5 ML SDV (FOR ANES.) As Ordered (12:50)
[2018-01-11] MEDS ORDERED: fentaNYL 100 MCG/2 ML INJECTION (J3010) As Ordered (12:58)
== END 2018-01-11 13:51 | disposition home or self-care (01) ==
LOC: M OPP 10:57
DX: Z12.11 Encounter for screening for malignant neoplasm of colon (principal); Z86.010 Personal history of colon polyps; Z80.0 Family history of malignant neoplasm of digestive organs; K57.30 Diverticulosis of large intestine without perforation or abscess without bleeding; K64.8 Other hemorrhoids; R12 Heartburn; K31.7 Polyp of stomach and duodenum; K44.9 Diaphragmatic hernia without obstruction or gangrene; K58.9 Irritable bowel syndrome, unspecified; I10 Essential (primary) hypertension; E04.1 Nontoxic single thyroid nodule; K57.32 Diverticulitis of large intestine without perforation or abscess without bleeding; K21.9 Gastro-esophageal reflux disease without esophagitis; M19.90 Unspecified osteoarthritis, unspecified site; M81.0 Age-related osteoporosis without current pathological fracture; F41.9 Anxiety disorder, unspecified; F32.9 Major depressive disorder, single episode, unspecified; G43.909 Migraine, unspecified, not intractable, without status migrainosus; Z86.73 Personal history of transient ischemic attack (TIA), and cerebral infarction without residual deficits; Z85.828 Personal history of other malignant neoplasm of skin; Z88.1 Allergy status to other antibiotic agents; Z88.2 Allergy status to sulfonamides; Z79.899 Other long term (current) drug therapy; Z80.8 Family history of malignant neoplasm of other organs or systems
CPT/HCPCS: G0105

== ENCOUNTER → 2018-02-04 | Outpatient (CLI) | payer MEDICARE, OTHER ==
[2018-02-04 14:28] LABS: ANION GAP 10 MEQ/L (8-16); BLOOD UREA NITROGEN 27 MG/DL (7-18); CARBON DIOXIDE LEVEL 25 MEQ/L (21-32); CHLORIDE LEVEL 99 MEQ/L (98-107); CREATININE FOR GFR 0.87 MG/DL (0.55-1.30); GLOMERULAR FILTRATION RATE > 60.0 (>39); GLUCOSE, FASTING 98 MG/DL (70-100); SODIUM LEVEL 134 MEQ/L (136-145)
[2018-02-04 14:33] LABS: POTASSIUM SERUM 5.7 MEQ/L (3.5-5.1)
[2018-02-04 14:37] LABS: ESTIMATED AVERAGE GLUCOSE 123 MG/DL (60-110); HEMOGLOBIN A1c 5.9 %
== END ==
LOC: M SMT 10:49
DX: Z00.00 Encounter for general adult medical examination without abnormal findings (principal); R73.01 Impaired fasting glucose
CPT/HCPCS: 83036

== ENCOUNTER → 2018-04-22 | Outpatient (CLI) | payer MEDICARE, OTHER ==
[2018-04-22 13:53] LABS: HEMATOCRIT 37.7 % (36.0-47.0); HEMOGLOBIN 12.1 g/dl (12.0-15.5); MEAN CORPUSCULAR HEMOGLOBIN 29.9 pg (27.0-33.0); MEAN CORPUSCULAR HGB CONC 32.1 g/dl (32.0-36.5); MEAN CORPUSCULAR VOLUME 93.1 fl (80.0-96.0); PLATELET COUNT, AUTOMATED 271 10^3/uL (150-450); RED BLOOD COUNT 4.05 10^6/uL (4.00-5.40); RED CELL DISTRIBUTION WIDTH 14.4 % (11.5-14.5)
[2018-04-22 14:13] LABS: ADD MANUAL DIFFER YES; DIFF SLIDE NUMBER 180; POSITIVE DIFF POS FLAG
[2018-04-22 14:14] LABS: ALBUMIN/GLOBULIN RATIO 1.33 (1.00-1.93); ALKALINE PHOSPHATASE 95 U/L (45-117); ALT/SGPT 21 U/L (12-78); ANION GAP 8 MEQ/L (8-16); AST/SGOT 13 U/L (7-37); BILIRUBIN,TOTAL 0.3 MG/DL (0.2-1.0); BLOOD UREA NITROGEN 19 MG/DL (7-18); CALCIUM LEVEL 8.3 MG/DL (8.8-10.2); CARBON DIOXIDE LEVEL 27 MEQ/L (21-32); CHLORIDE LEVEL 103 MEQ/L (98-107); CREATININE FOR GFR 0.88 MG/DL (0.55-1.30); GLOMERULAR FILTRATION RATE > 60.0 (>39); GLUCOSE, FASTING 94 MG/DL (70-100); SODIUM LEVEL 138 MEQ/L (136-145)
[2018-04-22 14:35] LABS: ATYPICAL LYMPH 20 % (0-5); BASOPHILS 1 % (0-4); EOSINOPHILS 2 % (0-5); LYMPHOCYTES 43 % (16-52); MONOCYTES 4 % (0-8); NEUTROPHILS 30 % (35-75); PLATELET ESTIMATE NORMAL (NORMAL)
[2018-04-22 14:46] LABS: ESTIMATED AVERAGE GLUCOSE 120 MG/DL (60-110); HEMOGLOBIN A1c 5.8 %
[2018-04-22 17:54] LABS: CONTROL LINE MONO RF C INT CTR LINE PRESENT; MONO REFLEX EBV COMP NEGATIVE (NEGATIVE); REASON FOR REVIEW ATYPICAL LYMPHS; SLIDE REVIEW Report; SOURCE PERIPHERAL SMEAR
[2018-04-26 14:16] LABS: EBV AB TO NUCLEAR ANTIGEN <18.0 U/mL (0.0-17.9); EBV VIRAL CAPSID AG IgM <36.0 U/mL (0.0-35.9); Lyme Disease IgG/IgM Antibodie <0.91 ISR (0.00-0.90); Lyme Disease IgM Ab Quantitati <0.80 index (0.00-0.79)
== END ==
LOC: M SMT 09:56
DX: I10 Essential (primary) hypertension (principal); R73.9 Hyperglycemia, unspecified; K21.9 Gastro-esophageal reflux disease without esophagitis; D72.820 Lymphocytosis (symptomatic)
CPT/HCPCS: 80053

== ENCOUNTER → 2018-04-27 | Outpatient (CLI) | payer MEDICARE, OTHER ==
[2018-04-27 12:28] LABS: CONTROL LINE MONO RF C INT CTR LINE PRESENT; MONO REFLEX EBV COMP NEGATIVE (NEGATIVE)
[2018-04-29 00:07] LABS: EBV AB TO NUCLEAR ANTIGEN <18.0 U/mL (0.0-17.9); EBV VIRAL CAPSID AG IgM <36.0 U/mL (0.0-35.9); Lyme Disease IgG/IgM Antibodie <0.91 ISR (0.00-0.90); Lyme Disease IgM Ab Quantitati <0.80 index (0.00-0.79)
== END ==
LOC: M LAB 10:35
DX: D72.820 Lymphocytosis (symptomatic) (principal)
CPT/HCPCS: 86665

== ENCOUNTER → 2018-05-03 | Outpatient (CLI) | payer MEDICARE, OTHER | LOC: M LAB 11:21 | DX: D72.820 Lymphocytosis (symptomatic) (principal) | CPT/HCPCS: 36415 ==

== ENCOUNTER → 2018-08-17 | Outpatient (CLI) | payer MEDICARE, OTHER ==
[~2018-08-17] MED LIST changes: +AMIL25TA PO; -AMIL5TA PO; +AMIL5TAB4 PO; +BIOT10008 PO; +BYST2.5T2 PO; -LOSA50TA20 PO; +LOSA50TA88 PO; -VITA1CAP40 PO; +VITA20008 PO; +VITA50005 PO
[2018-08-17 13:18] LABS: HEMATOCRIT 38.5 % (36.0-47.0); HEMOGLOBIN 12.3 g/dl (12.0-15.5); MEAN CORPUSCULAR HEMOGLOBIN 30.1 pg (27.0-33.0); MEAN CORPUSCULAR HGB CONC 31.9 g/dl (32.0-36.5); MEAN CORPUSCULAR VOLUME 94.4 fl (80.0-96.0); PLATELET COUNT, AUTOMATED 257 10^3/uL (150-450); RED BLOOD COUNT 4.08 10^6/uL (4.00-5.40)
[2018-08-17 13:20] LABS: WHITE BLOOD COUNT 9.9 10^3/uL (4.0-10.0)
[2018-08-17 13:47] LABS: ALBUMIN 4.4 GM/DL (3.2-5.2); ALT/SGPT 26 U/L (12-78); BILIRUBIN,TOTAL 0.4 MG/DL (0.2-1.0); BLOOD UREA NITROGEN 24 MG/DL (7-18); CARBON DIOXIDE LEVEL 29 MEQ/L (21-32); CHLORIDE LEVEL 100 MEQ/L (98-107); CREATININE FOR GFR 0.95 MG/DL (0.55-1.30); GLOMERULAR FILTRATION RATE > 60.0 (>32); GLUCOSE, FASTING 105 MG/DL (70-100); SODIUM LEVEL 137 MEQ/L (136-145); TOTAL PROTEIN 7.1 GM/DL (6.4-8.2)
[2018-08-17 13:58] LABS: HEMOGLOBIN A1c 6.1 %
[2018-08-17 14:09] LABS: ATYPICAL LYMPH 2 % (0-5); LYMPHOCYTES 51 % (16-52); MONOCYTES 11 % (0-8); NEUTROPHILS 36 % (35-75); PLATELET ESTIMATE NORMAL (NORMAL)
== END ==
LOC: M SMT 10:32
PROVIDERS: ATTEND Family Medicine
DX: R73.9 Hyperglycemia, unspecified (principal); I10 Essential (primary) hypertension; K21.9 Gastro-esophageal reflux disease without esophagitis

== ENCOUNTER → 2018-11-12 | Outpatient (CLI) | payer MEDICARE, OTHER ==
[2018-11-12 12:59] LABS: HEMATOCRIT 38.5 % (36.0-47.0); HEMOGLOBIN 12.1 g/dl (12.0-15.5); MEAN CORPUSCULAR HEMOGLOBIN 29.7 pg (27.0-33.0); MEAN CORPUSCULAR HGB CONC 31.4 g/dl (32.0-36.5); MEAN CORPUSCULAR VOLUME 94.6 fl (80.0-96.0); PLATELET COUNT, AUTOMATED 259 10^3/uL (150-450); RED BLOOD COUNT 4.07 10^6/uL (4.00-5.40); WHITE BLOOD COUNT 8.8 10^3/uL (4.0-10.0)
[2018-11-12 13:29] LABS: EOSINOPHILS 2 % (0-5); LYMPHOCYTES 58 % (16-52); MONOCYTES 6 % (0-8); NEUTROPHILS 34 % (35-75)
[2018-11-12 13:30] LABS: PLATELET ESTIMATE NORMAL (NORMAL)
[2018-11-12 14:44] LABS: ALBUMIN 4.4 GM/DL (3.2-5.2); ALT/SGPT 23 U/L (12-78); BILIRUBIN,TOTAL 0.4 MG/DL (0.2-1.0); BLOOD UREA NITROGEN 13 MG/DL (7-18); CALCIUM LEVEL 9.2 MG/DL (8.8-10.2); CARBON DIOXIDE LEVEL 28 MEQ/L (21-32); CHLORIDE LEVEL 103 MEQ/L (98-107); CREATININE FOR GFR 0.94 MG/DL (0.55-1.30); GLOMERULAR FILTRATION RATE > 60.0 (>32); GLUCOSE, FASTING 109 MG/DL (70-100); POTASSIUM SERUM 5.1 MEQ/L (3.5-5.1); SODIUM LEVEL 137 MEQ/L (136-145); TOTAL 25(OH) VITAMIN D 51.7 NG/ML (30.0-100.0); TOTAL PROTEIN 6.6 GM/DL (6.4-8.2)
[2018-11-12 15:14] LABS: HEMOGLOBIN A1c 6.1 %
== END ==
LOC: M SMT 10:43
PROVIDERS: ATTEND Family Medicine
DX: R73.9 Hyperglycemia, unspecified (principal); E55.9 Vitamin D deficiency, unspecified; C91.10 Chronic lymphocytic leukemia of B-cell type not having achieved remission

== ENCOUNTER → 2019-02-09 | Outpatient (CLI) | payer MEDICARE, BC ==
[~2019-02-09] MED LIST changes: +CYAN100049 PO; -VITA10002 PO
[2019-02-09 13:53] LABS: BLOOD UREA NITROGEN 15 MG/DL (7-18); CALCIUM LEVEL 9.3 MG/DL (8.8-10.2); CARBON DIOXIDE LEVEL 28 MEQ/L (21-32); CHLORIDE LEVEL 104 MEQ/L (98-107); GLOMERULAR FILTRATION RATE > 60.0 (>32); GLUCOSE, FASTING 94 MG/DL (70-100); POTASSIUM SERUM 4.9 MEQ/L (3.5-5.1); SODIUM LEVEL 140 MEQ/L (136-145)
[2019-02-09 13:57] LABS: HEMOGLOBIN A1c 6.3 %
== END ==
LOC: M SMT 11:13
PROVIDERS: ATTEND Physician Assistant
DX: R73.03 Prediabetes (principal)

== ENCOUNTER → 2019-02-17 | Outpatient (CLI) | payer MEDICARE, BC ==
--- NOTE | 2019-02-17 15:09 | REP ---
PA and lateral chest: Comparison is the portable chest dated 10/17/2016. There is chronic cardiomegaly, unchanged. The lung lantigua are clear. The leora, mediastinum, skeletal structures are unremarkable. Impression: Chronic cardiomegaly, otherwise negative PA and lateral chest. Electronically Signed by Nagi Ledesma MD 02/17/2019 03:00 P
== END ==
LOC: M WUC 14:44 → M SMT 14:44
PROVIDERS: ATTEND Family Medicine
DX: R05 Cough (principal); I51.7 Cardiomegaly

== ENCOUNTER → 2019-03-07 | Outpatient (CLI) | payer BC, MEDICARE ==
--- NOTE | 2019-03-07 19:22 | ECHO ---
DATE OF PROCEDURE: 03/07/2019 REFERRING PHYSICIAN: Dr. Swartz INDICATION: Pericardial cyst. Height 152 cm, weight 66 kg. DIMENSIONS: IVS: 0.9 LV: 4.2 LVPW: 0.8 LA: 2.6 Aorta: 3.3 IVC: 1.6 Mitral E wave velocity: 41 A wave: 89 E prime septal: 6.3 E prime lateral: 6.5 FINDINGS: The study is of acceptable technical quality. The patient is in sinus rhythm. Left ventricle is of normal size and systolic function, I estimate left ventricular ejection fraction (LVEF) approximately 60-65%. Right ventricle also appears normal. Both atria appear normal. Aortic valve was poorly visualized. It is at least mildly sclerotic and probably tricuspid. Mitral and tricuspid valves appear normal. Pulmonic valve was not well seen. No pericardial effusion is noted. Inferior vena cava is normal size. Aortic root is normal. Aortic arch and abdominal aorta were not well seen. Doppler interrogation reveals no aortic stenosis but approximately mild to moderate insufficiency. There is functionally competent mitral and tricuspid valve. Mitral inflow pattern and tissue Doppler imaging of mitral annulus revealed grade 1 diastolic dysfunction. CONCLUSIONS: 1. Study is of acceptable technical quality. 2. Normal left ventricular (LV) size and systolic function, grade 1 diastolic dysfunction. 3. Mild to moderate aortic insufficiency. 4. Likely normal central venous pressure. 5. Unable to estimate pulmonary artery pressure. 6. No pericardial cyst was seen. COMMENT: Subacute bacterial endocarditis (SBE) prophylaxis is not recommended.
== END ==
LOC: M CARPUL 10:25
PROVIDERS: ATTEND Family Medicine
DX: I35.1 Nonrheumatic aortic (valve) insufficiency (principal); I31.8 Other specified diseases of pericardium

== ENCOUNTER → 2019-04-18 | Outpatient (CLI) | payer BC ==
[2019-04-18 13:32] LABS: BASO # 0.1 10^3/uL (0.0-0.2); BASO % 0.6 % (0.0-1.0); EOS # 0.3 10^3/uL (0.0-0.5); HEMATOCRIT 37.4 % (36.0-47.0); LYMPH # 4.5 10^3/uL (1.5-5.0); LYMPH % 41.2 % (24.0-44.0); MEAN CORPUSCULAR HEMOGLOBIN 29.3 pg (27.0-33.0); MEAN CORPUSCULAR HGB CONC 32.1 g/dl (32.0-36.5); MEAN CORPUSCULAR VOLUME 91.4 fl (80.0-96.0); MONO # 1.4 10^3/uL (0.0-0.8); MONO % 13.2 % (0.0-5.0); NEUTROPHILS # 4.5 10^3/uL (1.5-8.5); NEUTROPHILS % 41.7 % (36.0-66.0); PLATELET COUNT, AUTOMATED 267 10^3/uL (150-450); RED BLOOD COUNT 4.09 10^6/uL (4.00-5.40); WHITE BLOOD COUNT 10.9 10^3/uL (4.0-10.0)
[2019-04-18 13:41] LABS: ALBUMIN 4.1 GM/DL (3.2-5.2); ALT/SGPT 20 U/L (12-78); BILIRUBIN,TOTAL 0.6 MG/DL (0.2-1.0); BLOOD UREA NITROGEN 22 MG/DL (7-18); CARBON DIOXIDE LEVEL 26 MEQ/L (21-32); CHLORIDE LEVEL 102 MEQ/L (98-107); CREATININE FOR GFR 0.85 MG/DL (0.55-1.30); GLOMERULAR FILTRATION RATE > 60.0 (>32); GLUCOSE, FASTING 105 MG/DL (70-100); POTASSIUM SERUM 4.5 MEQ/L (3.5-5.1); SODIUM LEVEL 137 MEQ/L (136-145); TOTAL PROTEIN 6.7 GM/DL (6.4-8.2)
[2019-04-18 13:53] LABS: HEMOGLOBIN A1c 5.8 %
== END ==
LOC: M SMT 11:16
PROVIDERS: ATTEND Family Medicine
DX: C91.10 Chronic lymphocytic leukemia of B-cell type not having achieved remission (principal); R73.03 Prediabetes

== ENCOUNTER → 2019-04-19 | Outpatient (REF) | payer BC ==
[2019-04-19 15:15] LABS: MALB URINE SIEMENS < 5.0 MG/L; MAU/CREAT RATIO 17.8 MCG/MG (0.0-30.0)
== END ==
LOC: M LAB REF 13:14
PROVIDERS: ATTEND Family Medicine
DX: R73.03 Prediabetes (principal); C91.10 Chronic lymphocytic leukemia of B-cell type not having achieved remission

== ENCOUNTER → 2019-05-10 | Outpatient (CLI) | payer MEDICARE ==
[~2019-05-10] MED LIST changes: +BIOT1000 PO; +CALC600T60 PO; +D200CAP3 PO; +HYDR-4571 PO; +MILK175C6 PO
--- NOTE | 2019-05-10 10:47 | REP ---
CT chest without contrast: History: Cystic appearing mass in the anterior mediastinum on the right. Head enlarged on CT study at [facility] on February 24, 2019 compared to September 14, 2018. Planning for resection. Comparison study is available from February 24, 2019. CT findings: The triangular shaped cystic lesion is again seen along the right mediastinal contour occupying the right cardiophrenic angle. This is compatible with a pericardial cyst. Its appearance is similar to the most recent prior study. It currently measures 8.5 cm anterior to posterior by 6.2 cm right to left by 6.4 cm cranial to caudal. By my measurement on the February 24, 2019 study, these measurements were 8.4 x 5.7 x 7.7 cm respectively. It does not appear to have changed in overall size in the interval. There is some compressive atelectasis adjacent to the lateral border of the lesion in the right middle lobe as before. There are bibasilar linear fibrotic changes in the lung parenchyma. There are a few scattered small air cysts or bullae bilaterally. There is some linear fibrosis in the left apex. No adrenal lesion is seen. The gallbladder is surgically absent. There is a low-density cyst in the left lobe of the liver measuring 2.5 cm in diameter. This is a little larger but otherwise unchanged when compared with a remote prior CT study of the abdomen May 06, 2006. There is a 1.2 cm low density nodule in the left lobe of the thyroid gland. No other extrathoracic abnormality. No bony destructive lesion is seen. Impression: There is an 8.5 cm cystic lesion in the cardiophrenic angle on the right, adjacent to the right heart border and compatible with a pericardial cyst. Electronically Signed by Nikolai Johnson MD 05/10/2019 11:30 A
== END ==
LOC: M RAD 06:53
PROVIDERS: ATTEND Thoracic Surgery (Cardiothoracic Vascular Surgery)
DX: I31.8 Other specified diseases of pericardium (principal); D15.2 Benign neoplasm of mediastinum

== ENCOUNTER → 2019-05-12 | Outpatient (CLI) | payer MEDICARE ==
[~2019-05-12] MED LIST changes: -HYDR-4571 PO
[2019-05-12 14:26] LABS: ABG BASE EXCESS -1.4 (-2.0-2.0); ABG HCO3 22.9 MEQ/L (22.0-26.0); ABG O2 SATURATION 93.3 % (95.0-99.0); ABG PARTIAL PRESSURE CO2 37.1 mmHg (35.0-45.0); ABG PARTIAL PRESSURE O2 68.7 mmHg (75.0-100.0); ABG STANDARD HCO3 23.3 MEQ/L (22.0-26.0); ABG TOTAL CO2 24.1 MEQ/L (23.0-31.0); ABG pH (ARTERIAL) 7.409 UNITS (7.350-7.450); HEMATOCRIT 37.4 % (36.0-47.0); MEAN CORPUSCULAR HEMOGLOBIN 30.2 pg (27.0-33.0); MEAN CORPUSCULAR HGB CONC 32.1 g/dl (32.0-36.5); PLATELET COUNT, AUTOMATED 226 10^3/uL (150-450); RED BLOOD COUNT 3.98 10^6/uL (4.00-5.40); WHITE BLOOD COUNT 9.1 10^3/uL (4.0-10.0)
[2019-05-12 14:38] LABS: INR 1.04; PROTHROMBIN TIME 13.3 SECONDS (11.8-14.0)
[2019-05-12 14:39] LABS: PARTIAL THROMBOPLASTIN TIME 27.6 SECONDS (25.0-38.4)
[2019-05-12 14:56] LABS: BLOOD UREA NITROGEN 16 MG/DL (7-18); CALCIUM LEVEL 8.9 MG/DL (8.8-10.2); CARBON DIOXIDE LEVEL 29 MEQ/L (21-32); CHLORIDE LEVEL 105 MEQ/L (98-107); CREATININE FOR GFR 0.82 MG/DL (0.55-1.30); GLOMERULAR FILTRATION RATE > 60.0 (>32); GLUCOSE, FASTING 102 MG/DL (70-100); POTASSIUM SERUM 3.8 MEQ/L (3.5-5.1); SODIUM LEVEL 139 MEQ/L (136-145)
--- NOTE | 2019-05-12 15:15 | ECGEPIP ---
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
[2019-05-12 15:30] LABS: APPEARANCE, URINE CLEAR (CLEAR); BACTERIA, URINE AUTO NEGATIVE (NEGATIVE); BILIRUBIN, URINE AUTO NEGATIVE (NEGATIVE); BLOOD, URINE BLOOD NEGATIVE (NEGATIVE); COLOR, URINE YELLOW (YELLOW); GLUCOSE, URINE (UA) AUTO NEGATIVE (NEGATIVE); KETONE, URINE AUTO NEGATIVE (NEGATIVE); LEUKOCYTE ESTERASE, URINE AUTO NEGATIVE (NEGATIVE); NITRITE, URINE AUTO NEGATIVE (NEGATIVE); PROTEIN, URINE AUTO NEGATIVE (NEGATIVE); RBC, URINE AUTO 2 /HPF (0-3); SPECIFIC GRAVITY URINE AUTO 1.003 (1.002-1.035); SQUAMOUS EPITHELIAL CELL UR AU 0 /HPF (0-6); TRANSITIONAL EPITHELIAL AUTO <1 /HPF; UROBILINOGEN, URINE AUTO 0.2 mg/dL (0.0-2.0); WBC, URINE AUTO 1 /HPF (0-3)
--- NOTE | 2019-05-12 16:44 | REP ---
Two-view chest: 05/12/2019. Indication: Preoperative assessment. Comparison: CT chest from 2 days earlier. Findings: Compared to the study from 2 days earlier, no significant changes are present. There are no areas of airspace consolidation. There is no pleural effusion or pneumothorax. Please see recent chest CT report for description of cardiac and pericardiac findings. Impression: No acute changes compared to 2 days earlier. The lungs are clear. Electronically Signed by Oniel Davis DO 05/12/2019 04:35 P
== END ==
LOC: M ADMPAT 13:37
PROVIDERS: ATTEND Thoracic Surgery (Cardiothoracic Vascular Surgery)
DX: Z01.818 Encounter for other preprocedural examination (principal); Q24.8 Other specified congenital malformations of heart

== ENCOUNTER 2019-05-16 06:23 | Inpatient (IN) | payer MEDICARE ==
[2019-05-12 14:20] VITALS: BP 140/91
[~2019-05-16] VITALS: Ht 152.4 cm; Wt 73.0 kg
[2019-05-16] VITALS (12 sets, daily range): BP systolic 94–134; BP diastolic 46–63
[~2019-05-16 06:23] MED LIST changes: +LIDOCAINE 1% MDV 20ML VIAL SQ PRN; +LR 1,000 ML IV ONE; +MUPIROCIN 2% OINT 22 GM TUBE TOP ONE; +ceFAZolin SOD 2 GM in IV 1 EA IV ONE
[2019-05-16] MEDS ORDERED: BUPIVACAINE LIPOSOME/PF 1.3% 20ML VIAL (13.3MG/ML)(EXPAREL)(C9290 PER1MG) As Ordered ONE (07:25)
[2019-05-16] MEDS ORDERED: ROCURONIUM BROMIDE 50 MG/5 ML VIAL As Ordered ONE ×2 (07:25→10:23)
[2019-05-16] MEDS ORDERED: LACRILUBE (AKWA TEARS) OPHTH OINT 3.5 GM As Ordered ONE (07:25)
[2019-05-16] MEDS ORDERED: dexameTHASONE 4 MG/ML 1ML VIAL (J1100) As Ordered ONE (07:25)
[2019-05-16] MEDS ORDERED: ONDANSETRON 4MG/2ML VIAL (J2405) As Ordered ONE (07:25)
[2019-05-16] MEDS ORDERED: LIDOCAINE 2% INJ 100 MG/5 ML SDV (FOR ANES.) As Ordered ONE (07:25)
[2019-05-16] MEDS ORDERED: PROPOFOL 200 MG/20 ML VIAL As Ordered ONE (07:25)
[2019-05-16] MEDS ORDERED: CETACAINE SPRAY 5GM As Ordered ONE (07:26)
[2019-05-16] MEDS ORDERED: BUPIVACAINE HCL 0.5% 10 ML VIAL As Ordered ONE (07:26)
[2019-05-16] MEDS ORDERED: KETAMINE HCL 200 MG/20 ML VIAL As Ordered ONE (07:27)
[2019-05-16] MEDS ORDERED: fentaNYL 250 MCG/5 ML INJECTION (J3010) As Ordered ONE (07:27)
[2019-05-16] MEDS ORDERED: MIDAZOLAM INJ 2 MG/2 ML VIAL (J2250) As Ordered ONE ×2 (07:33→07:45)
[2019-05-16] MEDS ORDERED: BUPIVACAINE HCL 0.25% 30 ML VIAL As Ordered ONE (07:38)
[2019-05-16] MEDS ORDERED: fentaNYL 100 MCG/2 ML INJECTION (J3010) As Ordered ONE (07:45)
[2019-05-16] MEDS: MIDAZOLAM INJ 2 MG/2 ML VIAL (J2250) IV PRN ×2 (08:35→08:40)
[2019-05-16] MEDS: fentaNYL 100 MCG/2 ML INJECTION (J3010) IV PRN ×2 (08:35→08:40)
[2019-05-16] MEDS: ASCORBIC ACID 500 MG TAB PO SCH (09:00)
[2019-05-16] MEDS ORDERED: ePHEDrine SULFATE 25 MG/5 ML(5MG/ML) SYRINGE As Ordered ONE (10:31)
[2019-05-16] MEDS ORDERED: PHENYLephrine HCL 500 MCG/5 ML (100MCG/ML) SYRINGE (J2370) As Ordered ONE (10:31)
[2019-05-16] MEDS ORDERED: SUGAMMADEX SODIUM 500 MG/5 ML VIAL (BRIDION) As Ordered ONE (11:13)
[2019-05-16] MEDS ORDERED: PHENYLEPHRINE INJ 10MG/ML VIAL (J2370) As Ordered ONE (11:23)
[2019-05-16] MEDS ORDERED: FENTANYL 2MCG/ML BUPIVACAINE 0.0625% NACL 250ML IV BAG As Ordered ONE (11:57)
[2019-05-16] MEDS ORDERED: LEVALBUTEROL 1.25 MG/0.5 ML CONCENTRATE NEB NEB PRN (12:00)
[2019-05-16] MEDS ORDERED: METOCLOPRAMIDE INJ 10MG/2ML VIAL (J2765) IV PRN ×2 (12:00→13:00)
[2019-05-16] MEDS ORDERED: diphenhydrAMINE INJ 50MG/ML VIAL (J1200) IV PRN (12:00)
[2019-05-16] MEDS ORDERED: BISACODYL 10 MG SUPP PR PRN (12:00)
[2019-05-16] MEDS ORDERED: EPIDURAL/PCA KEYS XX PRN (12:00)
[2019-05-16] MEDS ORDERED: WALLBOXKEY XX PRN (12:00)
[2019-05-16] MEDS ORDERED: ONDANSETRON 4MG/2ML VIAL (J2405) IV PRN ×3 (12:00→13:00)
[2019-05-16] MEDS ORDERED: NALOXONE INJ 0.4 MG/1 ML VIAL (J2310) IV PRN (12:00)
[2019-05-16] MEDS: FENTANYL/BUPIVACAINE/NACL BAG 250 ML EPIDURAL SCH (12:00)
[2019-05-16 12:43] LABS: ABG BASE EXCESS -3.5 (-2.0-2.0); ABG HCO3 23.2 MEQ/L (22.0-26.0); ABG O2 SATURATION 84.9 % (95.0-99.0); ABG PARTIAL PRESSURE O2 57.5 mmHg (75.0-100.0); ABG STANDARD HCO3 21.3 MEQ/L (22.0-26.0); ABG TOTAL CO2 24.7 MEQ/L (23.0-31.0); ABG pH (ARTERIAL) 7.293 UNITS (7.350-7.450)
[2019-05-16 12:46] LABS: BASO % 0.2 % (0.0-1.0); EOS # 0.2 10^3/uL (0.0-0.5); EOS % 1.2 % (0.0-3.0); HEMATOCRIT 34.9 % (36.0-47.0); HEMOGLOBIN 11.3 g/dl (12.0-15.5); LYMPH # 2.7 10^3/uL (1.5-5.0); LYMPH % 20.9 % (24.0-44.0); MEAN CORPUSCULAR HEMOGLOBIN 30.4 pg (27.0-33.0); MEAN CORPUSCULAR HGB CONC 32.4 g/dl (32.0-36.5); MEAN CORPUSCULAR VOLUME 93.8 fl (80.0-96.0); MONO # 0.7 10^3/uL (0.0-0.8); MONO % 5.7 % (0.0-5.0); NEUTROPHILS # 9.2 10^3/uL (1.5-8.5); NEUTROPHILS % 71.5 % (36.0-66.0); PLATELET COUNT, AUTOMATED 203 10^3/uL (150-450); RED BLOOD COUNT 3.72 10^6/uL (4.00-5.40); WHITE BLOOD COUNT 12.9 10^3/uL (4.0-10.0)
[2019-05-16] MEDS: KCL 20MEQ IN D5/NS 1000ML 1,000 ML IV SCH (13:00)
[2019-05-16] MEDS ORDERED: fentaNYL 100 MCG/2 ML INJECTION (J3010) IV PRN (13:00)
[2019-05-16] MEDS: KETOROLAC 30 MG/ML VIAL (J1885) IV SCH ×2 (13:00→21:12)
[2019-05-16] MEDS ORDERED: PERCOCET 5MG/325MG TAB PO PRN ×3 (13:00)
[2019-05-16] MEDS ORDERED: LR 1,000 ML IV SCH (13:00)
[2019-05-16] MEDS ORDERED: NORCO, ANEXSIA 5/325MG TABLET (HYDROcodone/ACETAMINOPHEN) PO PRN (13:00)
[2019-05-16 13:16] LABS: BLOOD UREA NITROGEN 21 MG/DL (7-18); CALCIUM LEVEL 8.2 MG/DL (8.8-10.2); CARBON DIOXIDE LEVEL 27 MEQ/L (21-32); CHLORIDE LEVEL 107 MEQ/L (98-107); CREATININE FOR GFR 0.76 MG/DL (0.55-1.30); GLOMERULAR FILTRATION RATE > 60.0 (>32); GLUCOSE, FASTING 155 MG/DL (70-100); POTASSIUM SERUM 4.2 MEQ/L (3.5-5.1); SODIUM LEVEL 138 MEQ/L (136-145)
--- NOTE | 2019-05-16 14:18 | REP ---
REASON: Status post pericardial cyst excision. COMPARISON: 05/12/2019 The technique utilized in obtaining the radiograph has magnified the cardiac silhouette and accentuated the interstitial markings. There is a right-sided thoracotomy tube, the tip of which is in the right lung apical region. There is subcutaneous emphysema on the right. There is a patchy opacity in the left lower lobe with air bronchograms. The right lung is essentially clear, although the interstitial markings are accentuated by technique. There is cardiomegaly accentuated by technique. The osseous structures are within normal limits. IMPRESSION: 1. Patchy opacity in the left lower lobe atelectasis/pneumonia, correlate clinically. Consider PA and lateral views of the chest. 2. Right-sided thoracotomy tube and other findings as described above. Electronically Signed by Mahad Bautista DO 05/16/2019 04:42 P
[2019-05-16] MEDS: LOSARTAN 50 MG TAB PO SCH ×2 (15:21→21:00)
[2019-05-16] MEDS: aMILoride 5 MG TAB PO SCH (15:21)
[2019-05-16] MEDS: CYANOCOBALAMIN 500 MCG TAB PO SCH (15:22)
[2019-05-16] MEDS: VITAMIN D 1,000 INTERNATIONAL UNITS TABLET PO SCH (15:22)
[2019-05-16] MEDS: LEVALBUTEROL 1.25 MG/0.5 ML CONCENTRATE NEB NEB SCH ×2 (15:36→20:08)
--- NOTE | 2019-05-16 19:02 | RO ---
DATE OF PROCEDURE: 05/16/2019 PREPROCEDURE DIAGNOSIS: Pericardial cyst. POSTPROCEDURE DIAGNOSIS: Pericardial cyst with postoperative mucous plugging. PROCEDURE: Bronchoscopy with bronchoalveolar lavage (BAL) both pre and post procedure and excision of pericardial cyst with video-assisted thoracoscopic surgery (VATS) technique. Five level rib block. SURGEON: Dr. Rene Hdez STATISTICAL FINANCIAL ANALYST: ANESTHESIA: FINDINGS: The pericardial cyst was quite large extending from the diaphragm to the superior mediastinum. It was adherent to the main portion of the pericardium, and these were lysed with the Harmonic scalpel. The phrenic nerve was visualized and assiduously preserved. Phrenic nerve was posterior to the cyst along the confluence of the pulmonary veins. Bronchoscopy revealed a normal branching tracheobronchial tree but with increased secretions. At the end of the case, she had mucous plugging in the left upper lobe, and that was relieved with suction aspiration and bronchoalveolar lavage. DESCRIPTION OF PROCEDURE: Under satisfactory single lumen tube general anesthesia, bronchoscope was placed in the tracheobronchial tree. She had a normal branching pattern. Her airways were rather friable. There were copious amounts of secretions, and these were suction aspirated. She was then intubated with a double lumen tube and its position visualized and checked. The patient was then turned into a semisupine 45-degree position with the right side shelter up. The patient was then prepped and draped in the usual sterile fashion, and initial 5 mm port incision was made in the approximate 6th intercostal space just below the nipple line. The cyst was then visualized. There were gratifyingly no lung adhesions. Two additional 5 mm port incisions were made, and the cyst was then completely visualized. Mobilization was started at the inferior margin of the cyst by dividing adhesive tissue with the Harmonic scalpel. The phrenic nerve was visualized prior to division of adhesions. It came very close to the pericardial cyst and adhesive tissue to the pericardium but not to it. The adhesions were taken down with complete visualization of the phrenic nerve at all times. The adhesions continued to be lysed with blunt and sharp dissection with the Harmonic scalpel. This dissection led to the superior mediastinum where again careful visualization of the nerve was made. The cyst with a long neck was then removed by blunt dissection and excised. Cyst was then sent for pathological examination. There was very little bleeding involved in the cyst removal. After achieving adequate hemostasis, a 24 posterior chest tube was placed throughout the inferior port incisions. A five-level rib block consisting of Marcaine and Exparel were instilled. Lung was then reinflated under direct vision. Incisions were closed with running #3-0 Vicryl suture for the subcutaneous tissue, running #4-0 Monocryl subcuticular tissue for the skin. The patient was then reintubated with a single lumen tube, and the bronchoscope was then placed back into the tracheobronchial tree. The left upper lobe was found to be mucous plugged and was suction aspirated and bronchoalveolar lavage undertaken on both sides. She was cleared at the end. The tracheobronchial tree was somewhat hemorrhagic and ecchymotic. The patient tolerated the procedure well, left the operating room in satisfactory condition for the recovery room.
[2019-05-16] MEDS: VENLAFAXINE **XR** 37.5 MG CAPSULE PO SCH (21:13)
[2019-05-16] MEDS: HEPARIN SOD (PORCINE) 5000 UNITS/ML VIAL SC SCH (21:13)
[2019-05-16] MEDS: DOCUSATE SODIUM 100 MG CAP PO SCH (21:13)
[2019-05-17] VITALS (12 sets, daily range): BP systolic 98–125; BP diastolic 46–62
[2019-05-17] MEDS: LEVALBUTEROL 1.25 MG/0.5 ML CONCENTRATE NEB NEB SCH ×4 (01:34→20:57)
[2019-05-17] MEDS: KETOROLAC 30 MG/ML VIAL (J1885) IV SCH ×4 (02:04→18:32)
[2019-05-17] MEDS: KCL 20MEQ IN D5/NS 1000ML 1,000 ML IV SCH ×2 (02:04→15:40)
[2019-05-17 05:27] LABS: ABG BASE EXCESS -3.1 (-2.0-2.0); ABG HCO3 22.4 MEQ/L (22.0-26.0); ABG O2 SATURATION 95.4 % (95.0-99.0); ABG PARTIAL PRESSURE CO2 41.8 mmHg (35.0-45.0); ABG PARTIAL PRESSURE O2 82.5 mmHg (75.0-100.0); ABG STANDARD HCO3 21.8 MEQ/L (22.0-26.0); ABG TOTAL CO2 23.6 MEQ/L (23.0-31.0); ABG pH (ARTERIAL) 7.346 UNITS (7.350-7.450)
[2019-05-17 05:41] LABS: BASO % 0.2 % (0.0-1.0); EOS % 0.3 % (0.0-3.0); HEMATOCRIT 30.7 % (36.0-47.0); HEMOGLOBIN 9.7 g/dl (12.0-15.5); LYMPH # 3.3 10^3/uL (1.5-5.0); LYMPH % 29.6 % (24.0-44.0); MEAN CORPUSCULAR HEMOGLOBIN 29.6 pg (27.0-33.0); MEAN CORPUSCULAR HGB CONC 31.6 g/dl (32.0-36.5); MEAN CORPUSCULAR VOLUME 93.6 fl (80.0-96.0); MONO # 1.6 10^3/uL (0.0-0.8); MONO % 14.6 % (0.0-5.0); NEUTROPHILS # 6.2 10^3/uL (1.5-8.5); PLATELET COUNT, AUTOMATED 191 10^3/uL (150-450); RED BLOOD COUNT 3.28 10^6/uL (4.00-5.40); WHITE BLOOD COUNT 11.3 10^3/uL (4.0-10.0)
[2019-05-17 05:56] LABS: BLOOD UREA NITROGEN 18 MG/DL (7-18); CALCIUM LEVEL 7.7 MG/DL (8.8-10.2); CARBON DIOXIDE LEVEL 26 MEQ/L (21-32); CHLORIDE LEVEL 110 MEQ/L (98-107); CREATININE FOR GFR 0.85 MG/DL (0.55-1.30); GLOMERULAR FILTRATION RATE > 60.0 (>32); GLUCOSE, FASTING 130 MG/DL (70-100); POTASSIUM SERUM 4.1 MEQ/L (3.5-5.1); SODIUM LEVEL 140 MEQ/L (136-145)
[2019-05-17] MEDS: aMILoride 5 MG TAB PO SCH (09:59)
[2019-05-17] MEDS: VENLAFAXINE **XR** 37.5 MG CAPSULE PO SCH ×2 (09:59→20:22)
[2019-05-17] MEDS: ASCORBIC ACID 500 MG TAB PO SCH (09:59)
[2019-05-17] MEDS: VITAMIN D 1,000 INTERNATIONAL UNITS TABLET PO SCH (10:00)
[2019-05-17] MEDS: DOCUSATE SODIUM 100 MG CAP PO SCH ×2 (10:00→20:21)
[2019-05-17] MEDS: PANTOPRAZOLE 40MG TAB (PROTONIX) PO SCH (10:00)
[2019-05-17] MEDS: LOSARTAN 50 MG TAB PO SCH ×2 (10:01→20:21)
[2019-05-17] MEDS: MOM 30ML SUSPENSION UDC PO SCH (10:01)
[2019-05-17] MEDS: CYANOCOBALAMIN 500 MCG TAB PO SCH (10:01)
[2019-05-17] MEDS: HEPARIN SOD (PORCINE) 5000 UNITS/ML VIAL SC SCH ×2 (10:02→20:22)
[2019-05-17] MEDS: NEBIVOLOL 5 MG TAB (BYSTOLIC) PO SCH (10:15)
--- NOTE | 2019-05-17 10:18 | REP ---
CHEST, TWO VIEWS: Two views of the chest is performed. Right chest tube is again noted. There is a very tiny right apical pneumothorax about 3 mm in thickness. Left basilar parenchymal opacity has improved with mild residual. Heart and mediastinum are unchanged. IMPRESSION: Right chest tube remains in place with very tiny right apical pneumothorax. Mild residual left basilar parenchymal opacity with improvement since prior exam 05/16/2019. Electronically Signed by Nagi Kong MD 05/18/2019 11:42 A
--- NOTE | 2019-05-17 11:10 | IPN ---
DATE OF SERVICE: 05/17/2019 This is now the first postoperative day for Mrs. Rodgers. She had a stable night of surgery. Her blood pressure got a little bit soft last night, and I turned the epidural down to 3. Her pain is being well controlled. Her blood pressure has returned to the 100-120 range. Her vital signs show a maximum temperature (Tmax) of 98.3 with a heart rate that ranges between 78 and 68 in a sinus rhythm, respiratory rate of 14-16 without the use of accessory muscles who is 93% to 94% saturated on 2 liters nasal cannula and whose blood pressure is ranging between 123/58 to 104/50. Her intake and output over the past 24 hours has been recorded as 1870 in and 1062 out for a positivity of 800 mL. She has put out 112 mL from the chest tube, and there is no air leak. Her weight is pending today. On physical examination, her lungs show normal vesicular sounds without wheezes, rales, or rhonchi. Percussion note is full to the diaphragm. Cardiovascular examination: Is without murmurs, click, gallops, or rubs. I cannot feel her point of maximal impulse (PMI). S1 and S2 are normal. Abdomen: Is soft, nontender. Bowel sounds are positive. There is no hepatomegaly and no costovertebral angle (CVA) tenderness. Extremities: Show no pretibial edema. No calf tenderness. No differential swelling of the upper extremities. Skin: Is warm, dry, and perfused without cyanosis or mottling, including that of the nail beds and the knees. Neck: Is supple. There is no jugular venous distention, no subcutaneous emphysema. Trachea is midline. Mouth: Shows her mucous membranes to be pink and moist. Lips and commissures without lesions. There is no thrush. Eyes: Show her pupils to be equal and reactive. Extraocular motor intact. Sclerae anicteric. Neurologic: Shows II-XII intact, along with gross motor and gross sensation intact. Gait is not tested. Psychiatric: Shows her to be oriented times three with appropriate mood and affect and conversational. Her white count today is 11.3 with a hemoglobin and hematocrit of 9.7 and 30.7 down from 11.3 and 34.9 secondary to hemodilution. Platelet count is 191 and stable, and differential shows 55% neutrophils, 29% lymphocytes, and 14% monocytes. There are no immature forms, no toxic granulations. Her electrolytes are essentially normal with a BUN and creatinine of 18 and 0.85, a glucose of 130, and a calcium of 7.7. Her blood gases today show a pH of 7.34, PCO2 of 41, and a pO2 of 82 on the above 2 liters nasal cannula. Her base excess is -3.1. Her chest x-ray today shows her lung fully expanded to the chest wall, and most significantly her diaphragms are at equal levels. I see no infiltrates. The chest tube is in good place, and costophrenic angles are sharp. IMPRESSION: 1. Postoperative day #1, status post excision paracardial cyst. 2. Paracardial cyst. Final pathology pending. 3. Hypertension. 4. Depression. Treated with venlafaxine. PLAN AND DISCUSSION: I will discontinue her chest tubes from suction today. Hopefully, I will be able to remove the chest tubes tomorrow and look to for a discharge date. She is doing extraordinarily well, and I am very pleased with her progress. I will transfer her to the progressive care unit (PCU) today.
[2019-05-17] MEDS: ACETAMINOPHEN TAB 650MG DOSE (2X325MG) PO PRN (15:25)
[2019-05-17] MEDS: FENTANYL/BUPIVACAINE/NACL BAG 250 ML EPIDURAL SCH (15:53)
[2019-05-17] MEDS ORDERED: SLF 3 ML SYR IV PRN (18:45)
[2019-05-17] MEDS: SLF 3 ML SYR IV SCH (22:14)
[2019-05-18] VITALS (7 sets, daily range): BP systolic 113–146; BP diastolic 55–70
[2019-05-18] MEDS: KETOROLAC 30 MG/ML VIAL (J1885) IV SCH ×4 (01:08→18:28)
[2019-05-18] MEDS: LEVALBUTEROL 1.25 MG/0.5 ML CONCENTRATE NEB NEB SCH ×4 (01:29→20:31)
[2019-05-18 05:42] LABS: BASO % 0.2 % (0.0-1.0); EOS # 0.3 10^3/uL (0.0-0.5); EOS % 2.7 % (0.0-3.0); HEMATOCRIT 30.2 % (36.0-47.0); HEMOGLOBIN 9.4 g/dl (12.0-15.5); MEAN CORPUSCULAR HGB CONC 31.1 g/dl (32.0-36.5); MEAN CORPUSCULAR VOLUME 93.2 fl (80.0-96.0); MONO # 1.4 10^3/uL (0.0-0.8); MONO % 14.9 % (0.0-5.0); NEUTROPHILS # 4.7 10^3/uL (1.5-8.5); PLATELET COUNT, AUTOMATED 190 10^3/uL (150-450); RED BLOOD COUNT 3.24 10^6/uL (4.00-5.40); WHITE BLOOD COUNT 9.4 10^3/uL (4.0-10.0)
[2019-05-18 06:05] LABS: BLOOD UREA NITROGEN 16 MG/DL (7-18); CALCIUM LEVEL 7.7 MG/DL (8.8-10.2); CARBON DIOXIDE LEVEL 27 MEQ/L (21-32); CHLORIDE LEVEL 102 MEQ/L (98-107); CREATININE FOR GFR 0.79 MG/DL (0.55-1.30); GLOMERULAR FILTRATION RATE > 60.0 (>32); GLUCOSE, FASTING 101 MG/DL (70-100); POTASSIUM SERUM 4.7 MEQ/L (3.5-5.1); SODIUM LEVEL 132 MEQ/L (136-145)
[2019-05-18] MEDS: SLF 3 ML SYR IV SCH ×3 (06:35→21:27)
--- NOTE | 2019-05-18 09:07 | REP ---
Two views chest: 05/18/2019. Indication: Pericardial cyst. Comparison: Yesterday. Findings: Right-sided chest tube is unchanged in position. Tiny right apical pneumothorax is unchanged. Left basilar parenchymal opacity is stable. Cardiac silhouette is unchanged. Impression: Right-sided chest tube unchanged in position with stable tiny right apical pneumothorax. Stable left lower lobe air space consolidation. Electronically Signed by Oniel Davis DO 05/18/2019 08:58 A
[2019-05-18] MEDS: MOM 30ML SUSPENSION UDC PO SCH (09:36)
[2019-05-18] MEDS: HEPARIN SOD (PORCINE) 5000 UNITS/ML VIAL SC SCH ×2 (09:36→21:27)
[2019-05-18] MEDS: ASCORBIC ACID 500 MG TAB PO SCH (09:36)
[2019-05-18] MEDS: aMILoride 5 MG TAB PO SCH (09:37)
[2019-05-18] MEDS: NEBIVOLOL 5 MG TAB (BYSTOLIC) PO SCH (09:37)
[2019-05-18] MEDS: VENLAFAXINE **XR** 37.5 MG CAPSULE PO SCH ×2 (09:37→21:27)
[2019-05-18] MEDS: PANTOPRAZOLE 40MG TAB (PROTONIX) PO SCH (09:37)
[2019-05-18] MEDS: VITAMIN D 1,000 INTERNATIONAL UNITS TABLET PO SCH (09:37)
[2019-05-18] MEDS: LOSARTAN 50 MG TAB PO SCH ×2 (09:38→21:27)
[2019-05-18] MEDS: DOCUSATE SODIUM 100 MG CAP PO SCH ×2 (09:38→21:26)
[2019-05-18] MEDS: CYANOCOBALAMIN 500 MCG TAB PO SCH (09:38)
[2019-05-18] MEDS ORDERED: FUROSEMIDE 20 MG/2 ML VIAL (J1940) IV ONE (12:00)
--- NOTE | 2019-05-18 12:02 | IPN ---
DATE: 05/18/2019 This is now the second postoperative day for Mrs. Rodgers. Her pain is being well controlled with the epidural. She has put out just a little bit to much from the chest tube and I am going to leave it in. Her vital signs show a T-max of 98.7 with a heart rate that ranges between 82 and 91 and is sinus rhythm, respiratory rate of 16-20 without the use of accessory muscles who is 94% to 97% saturated on 2 liters nasal cannula and whose blood pressure is ranging between 127/65 to 136/70. Her intake and output over the past 24 hours has been recorded as 1350 in and 830 out for a positivity of 520 mL. She has put out 230 mL from the chest tube, and her weight today is 76.6 kg compared to 67 kg the day before. I suspect one of those weights is spurious. On physical examination, she has inspiratory rales at the right lower hemithorax, which are fairly marked with some faint rales in the left lower hemithorax. Percussion note is full to the diaphragm. Cardiac exam is without murmurs, clicks, gallops, or rubs. I cannot feel her point of maximal impulse (PMI). S1 and S2 are normal. Abdomen is soft, nontender. Bowel sounds are positive. There is no hepatomegaly and no costovertebral angle (CVA) tenderness. She has not yet had a bowel movement. Extremities show no pretibial edema. No calf tenderness. No differential swelling of the upper extremities. Skin is warm, dry, and perfused without cyanosis or mottling, including that of the nail beds and the knees. Neck is supple. There is no jugular venous distention, no subcutaneous emphysema. Trachea is midline. Mouth shows her mucous membranes to be pink and moist. Lips and commissures without lesions. There is no thrush. Eyes show her pupils to be equal and reactive. Extraocular motor intact. Sclerae anicteric. Neuro shows II-XII intact, along with gross motor and gross sensation intact. Gait is not tested. Psychiatric shows her to be awake and alert, oriented times three with appropriate mood and affect and conversational. Her white count today is 9.4 with a hemoglobin and hematocrit of 9.4 and 30.2. White count is down from 11.3 yesterday. Hemoglobin and hematocrit are unchanged. Platelet count is 190 with a differential that shows 50% neutrophils, 32% lymphocytes, and 14% monocytes. There are no immature forms, no toxic granulations. Her electrolytes show a sodium of 132 with a BUN and creatinine of 16 and 0.79, the remainder of her electrolytes are normal. There are no blood gases on her today. Her chest x-ray shows her lung fully expanded to the chest wall. The costophrenic angles are sharp. The lateral film does not show any infiltrates posteriorly. IMPRESSION: 1. Postoperative day 2, status post removal of paracardial cyst. 2. Paracardial cyst confirmed by pathology. 3. Hypertension. 4. Depression. PLAN AND DISCUSSION: I will leave her chest tubes in today. I will gently diurese her today as she has rales in both sides. I am gratified by her course. She will continue to use her incentive spirometer. I have encouraged her to continue coughing.
[2019-05-18] MEDS: FENTANYL/BUPIVACAINE/NACL BAG 250 ML EPIDURAL SCH (17:17)
[2019-05-19] MEDS: KETOROLAC 30 MG/ML VIAL (J1885) IV SCH ×4 (00:45→18:16)
[2019-05-19] MEDS: LEVALBUTEROL 1.25 MG/0.5 ML CONCENTRATE NEB NEB SCH ×4 (02:19→20:10)
[2019-05-19 04:00] VITALS: BP 130/58
[2019-05-19 05:57] LABS: BASO % 0.1 % (0.0-1.0); EOS # 0.3 10^3/uL (0.0-0.5); EOS % 3.1 % (0.0-3.0); HEMATOCRIT 31.6 % (36.0-47.0); LYMPH # 3.2 10^3/uL (1.5-5.0); MEAN CORPUSCULAR HEMOGLOBIN 28.8 pg (27.0-33.0); MEAN CORPUSCULAR HGB CONC 31.6 g/dl (32.0-36.5); MEAN CORPUSCULAR VOLUME 91.1 fl (80.0-96.0); MONO # 1.4 10^3/uL (0.0-0.8); MONO % 15.3 % (0.0-5.0); PLATELET COUNT, AUTOMATED 201 10^3/uL (150-450); RED BLOOD COUNT 3.47 10^6/uL (4.00-5.40); WHITE BLOOD COUNT 8.8 10^3/uL (4.0-10.0)
[2019-05-19] MEDS: SLF 3 ML SYR IV SCH ×3 (06:05→21:55)
[2019-05-19 06:14] LABS: BLOOD UREA NITROGEN 18 MG/DL (7-18); CALCIUM LEVEL 8.3 MG/DL (8.8-10.2); CARBON DIOXIDE LEVEL 30 MEQ/L (21-32); CHLORIDE LEVEL 98 MEQ/L (98-107); CREATININE FOR GFR 0.76 MG/DL (0.55-1.30); GLOMERULAR FILTRATION RATE > 60.0 (>32); GLUCOSE, FASTING 103 MG/DL (70-100); POTASSIUM SERUM 4.9 MEQ/L (3.5-5.1); SODIUM LEVEL 132 MEQ/L (136-145)
[2019-05-19 08:00] VITALS: BP 152/70
--- NOTE | 2019-05-19 08:34 | REP ---
Two-view chest: 05/19/2019. Indication: Dyspnea. Comparison: Yesterday. Findings: Right-sided chest tube is unchanged in position. The previously described tiny right pneumothorax is no longer evident. Cardiomediastinal silhouette is unchanged. Left lower lobe air space consolidation is unchanged. There is no significant pleural effusion. Impression: Resolution of the previously described tiny right apical pneumothorax. Otherwise unchanged study. Electronically Signed by Oniel Davis DO 05/19/2019 08:25 A
[2019-05-19] MEDS: HEPARIN SOD (PORCINE) 5000 UNITS/ML VIAL SC SCH ×2 (08:41→21:55)
[2019-05-19] MEDS: LOSARTAN 50 MG TAB PO SCH ×2 (08:41→21:55)
[2019-05-19] MEDS: PANTOPRAZOLE 40MG TAB (PROTONIX) PO SCH (08:41)
[2019-05-19] MEDS: aMILoride 5 MG TAB PO SCH (08:41)
[2019-05-19] MEDS: NEBIVOLOL 5 MG TAB (BYSTOLIC) PO SCH (08:42)
[2019-05-19] MEDS: CYANOCOBALAMIN 500 MCG TAB PO SCH (08:43)
[2019-05-19] MEDS: VENLAFAXINE **XR** 37.5 MG CAPSULE PO SCH ×2 (08:43→21:55)
[2019-05-19] MEDS: MOM 30ML SUSPENSION UDC PO SCH (08:43)
[2019-05-19] MEDS: VITAMIN D 1,000 INTERNATIONAL UNITS TABLET PO SCH (08:43)
[2019-05-19] MEDS: ASCORBIC ACID 500 MG TAB PO SCH (08:43)
[2019-05-19] MEDS: DOCUSATE SODIUM 100 MG CAP PO SCH ×2 (08:43→21:55)
[2019-05-19 12:00] VITALS: BP 144/66
[2019-05-19] MEDS ORDERED: FUROSEMIDE 20 MG/2 ML VIAL (J1940) IV ONE (15:00)
--- NOTE | 2019-05-19 15:09 | IPN ---
DATE: 05/19/2019 This is now the third postoperative day for Mrs. Rodgers. Her pain is being well controlled. She has minimal chest tube output. Her vital signs show a T-max of 98.9 with a heart rate that ranges between 75 and 78 and is sinus rhythm, respiratory rate that is constant at 18, who is 92% to 96% saturated on room air, but drops down to 87 with activity. Blood pressure is ranging between 152/70 to 130/58. Her intake and output the past 24 hours has been recorded as 1230 in and 4010 out for a negativity of 2700 mL. She has put 85 mL out the chest tube. Weight today is 77 kg compared to 76.6 kg yesterday. On physical examination, she has some crackles in the right lower base along with the left lower base. These do not clear with coughing. Percussion note is full to the diaphragm. Cardiac exam is without murmurs, clicks, gallops, or rubs. I cannot feel her point of maximal impulse (PMI). S1 and S2 are normal. Abdomen is soft, nontender. Bowel sounds are positive. There is no hepatomegaly. No costovertebral angle (CVA) tenderness. She has not yet had a bowel movement. Extremities show no pretibial edema. No calf tenderness. No differential swelling of the upper extremities. Skin is warm, dry, and perfused without cyanosis or mottling, including that of the nail beds and the knees. Neck is supple. There is no jugular venous distention, no subcutaneous emphysema. Trachea is midline. Mouth shows her mucous membranes to be pink and moist. Lips and commissures without lesions. There is no thrush. Eyes show her pupils to be equal and reactive. Extraocular motors intact. Sclerae anicteric. Neuro shows II-XII intact, along with gross motor and gross sensation intact. Gait is not tested. Psychiatric shows her to be awake and alert, oriented times three with appropriate mood and affect and conversational. Her white count today is 8.8 with a hemoglobin and hematocrit of 10.0 and 31.6, respectively, with a platelet count of 201. Differential shows 45% neutrophils, 36% lymphocytes, and 15% monocytes. There are no immature forms, no toxic granulations. Her electrolytes show a markedly low sodium of 132. The remainder of her electrolytes are normal with a BUN and creatinine of 18 and 0.76, with a glucose of 103 and calcium of 8.3. Her chest x-ray today shows her lung fully expanded to the chest wall. She has minimal blunting of the right costophrenic angles. The left costophrenic angle is sharp. IMPRESSION: 1. Postoperative day 3, status post removal of pericardial cyst. 2. Pericardial cyst confirmed by pathology. 3. Hypertension. 4. Depression. PLAN AND DISCUSSION: I will remove her chest tubes today, wean her epidural and discontinue her [place]. If all goes well, we will plan for discharge in the morning.
[2019-05-19 16:00] VITALS: BP 131/63
[2019-05-19 20:00] VITALS: BP 149/68
[2019-05-19] MEDS: ACETAMINOPHEN TAB 650MG DOSE (2X325MG) PO PRN (22:17)
[2019-05-20] VITALS (7 sets, daily range): BP systolic 146–178; BP diastolic 66–98
[2019-05-20] MEDS: KETOROLAC 30 MG/ML VIAL (J1885) IV SCH ×4 (00:38→18:44)
[2019-05-20] MEDS: LEVALBUTEROL 1.25 MG/0.5 ML CONCENTRATE NEB NEB SCH ×4 (01:34→20:25)
[2019-05-20 05:37] LABS: BASO % 0.4 % (0.0-1.0); EOS # 0.3 10^3/uL (0.0-0.5); EOS % 3.5 % (0.0-3.0); HEMATOCRIT 32.2 % (36.0-47.0); HEMOGLOBIN 10.6 g/dl (12.0-15.5); LYMPH % 36.6 % (24.0-44.0); MEAN CORPUSCULAR HEMOGLOBIN 29.9 pg (27.0-33.0); MEAN CORPUSCULAR HGB CONC 32.9 g/dl (32.0-36.5); MONO # 1.1 10^3/uL (0.0-0.8); NEUTROPHILS # 3.8 10^3/uL (1.5-8.5); NEUTROPHILS % 46.1 % (36.0-66.0); PLATELET COUNT, AUTOMATED 208 10^3/uL (150-450); RED BLOOD COUNT 3.54 10^6/uL (4.00-5.40); WHITE BLOOD COUNT 8.2 10^3/uL (4.0-10.0)
[2019-05-20 06:06] LABS: BLOOD UREA NITROGEN 16 MG/DL (7-18); CALCIUM LEVEL 8.7 MG/DL (8.8-10.2); CARBON DIOXIDE LEVEL 30 MEQ/L (21-32); CHLORIDE LEVEL 98 MEQ/L (98-107); CREATININE FOR GFR 0.79 MG/DL (0.55-1.30); GLOMERULAR FILTRATION RATE > 60.0 (>32); GLUCOSE, FASTING 109 MG/DL (70-100); POTASSIUM SERUM 4.8 MEQ/L (3.5-5.1); SODIUM LEVEL 134 MEQ/L (136-145)
[2019-05-20] MEDS: SLF 3 ML SYR IV SCH ×3 (06:48→21:31)
[2019-05-20] MEDS: MOM 30ML SUSPENSION UDC PO SCH (08:48)
[2019-05-20] MEDS: NEBIVOLOL 5 MG TAB (BYSTOLIC) PO SCH (08:48)
[2019-05-20] MEDS: VENLAFAXINE **XR** 37.5 MG CAPSULE PO SCH ×2 (08:49→21:27)
[2019-05-20] MEDS: PANTOPRAZOLE 40MG TAB (PROTONIX) PO SCH (08:49)
[2019-05-20] MEDS: LOSARTAN 50 MG TAB PO SCH ×2 (08:50→21:31)
[2019-05-20] MEDS: aMILoride 5 MG TAB PO SCH (08:50)
[2019-05-20] MEDS: ASCORBIC ACID 500 MG TAB PO SCH (08:50)
[2019-05-20] MEDS: HEPARIN SOD (PORCINE) 5000 UNITS/ML VIAL SC SCH ×2 (08:51→21:27)
[2019-05-20] MEDS: VITAMIN D 1,000 INTERNATIONAL UNITS TABLET PO SCH (08:51)
[2019-05-20] MEDS: CYANOCOBALAMIN 500 MCG TAB PO SCH (08:51)
[2019-05-20] MEDS: DOCUSATE SODIUM 100 MG CAP PO SCH ×2 (08:51→21:27)
[2019-05-20] MEDS ORDERED: HYDR-4571 PO (09:53)
--- NOTE | 2019-05-20 10:14 | DSES ---
DATE OF ADMISSION: 05/16/2019 DATE OF DISCHARGE: 05/21/2019 DISCHARGE DIAGNOSES: 1. Pericardial cyst. 2. Postoperative day four status post excision of pericardial cyst by video-assisted thoracoscopic surgery (VATS) techniques. 3. Hypertension. 4. Depression. 5. Gastroesophageal reflux disease. HOSPITAL COURSE: The patient is an 78-year-old, white female who started to notice a cough this past August. She then noticed chest pressure and chest discomfort. She was found to have a pericardial cyst which was found to increase in size over the course of six months. She was therefore taken to the operating room where she underwent excision of pericardial cyst with VATS techniques. She had a benign postoperative course with the chest tubes being removed on postoperative day three. Her epidural was weaned and fully discontinued. She is experiencing discomfort. She is being discharged on her home medications which include amiloride 5 mg every day, ascorbic acid 500 mg every day, Biotin one tablet every day, vitamin D 2000 units every day, vitamin B12 1000 mcg every day, Dexilant 60 mg every day, ibuprofen 400 mg as needed pain for her back pain, losartan 50 mg twice a day, magnesium citrate 100 mg at bedtime, Bystolic 2.5 mg every day, riboflavin 100 mg twice a day, and venlafaxine 37.5 mg by mouth twice a day. I will see her in followup in one week with a chest x-ray. Her discharge white count is 8.2 with hemoglobin and hematocrit of 10.6 and 32.2 and a platelet count of 208. Discharge electrolytes are essentially normal with a marginally low sodium of 134 and a BUN and creatinine of 16 and 0.79. Her chest x-ray shows her lung fully expanded to the chest wall with sharp costophrenic angle on the right. [facility]
--- NOTE | 2019-05-20 10:55 | IPN ---
DATE: 05/20/2019 This is now the fourth postoperative day for Mrs. Rodgers. My intention was to send her home today and in fact had dictated the discharge summary pending upon her passing her home safety evaluation for stairs. While she was functionally intact she did get lightheaded at the top of the stairs and therefore I am going to keep her another day. Her pain is being well controlled. Her vital signs show a T-max of 98.0 with a heart rate that ranges between 67 and 75 in a sinus rhythm, a respiratory rate of 17 to 18 without the use of accessory muscles, who is 88% to 91% saturated on 0.5 liter nasal cannula. Blood pressure is ranging between 146/66 to 178/98. Her intake and output the past 24 hours has been recorded as 600 in and 2965 out for a negativity of 2300 mL. Her weight today is 74.7 kg compared to 77 kg yesterday. On physical examination, her lungs show equal breath sounds on either side. She has some coarse rhonchi which clear with coughing. Percussion note is full to the diaphragm. Cardiac exam is without murmurs, clicks, gallops, or rubs. I cannot feel her point of maximal impulse (PMI). S1 and S2 are normal. Abdomen is soft, nontender. Bowel sounds are positive. There is no hepatomegaly. No costovertebral angle (CVA) tenderness. Extremities show no pretibial edema. No calf tenderness. No differential swelling of the upper extremities. Skin is warm, dry, and perfused without cyanosis or mottling, including that of the nail beds and the knees. Neck is supple. There is no jugular venous distention, no subcutaneous emphysema. Trachea is midline. Mouth shows her mucous membranes to be pink and moist. Lips and commissures without lesions. There is no thrush. Eyes show her pupils to be equal and reactive. Extraocular motors intact. Sclerae anicteric. Neuro shows II-XII intact, along with gross motor and gross sensation intact. Gait is not tested. Psychiatric shows her to be awake and alert, oriented times three with appropriate mood and affect and conversational. Her white count today is 8.2 with a hemoglobin and hematocrit of 10.6 and 32.2 respectively. Platelet count is 208 and stable. Differential shows 46% neutrophils, 36% lymphocytes, and 13% monocytes. There are no immature forms, no toxic granulations. Her electrolytes are essentially normal with a marginally low sodium of 134. BUN and creatinine are 16 and 0.79. Glucose is 109 and calcium 8.7. Her chest x-ray shows her lung fully expanded to the chest wall. Costophrenic angles are sharp. 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 I seen no posterior infiltrates on the lateral film. IMPRESSION: 1. Postoperative day four status post excision pericardial cyst with VATS techniques. 2. Pericardial cyst now excised. 3. Hypertension. 4. Depression. 5. Gastroesophageal reflux disease. PLAN AND DISCUSSION: I will therefore keep her today and evaluate her tomorrow morning. I will tentatively plan for discharge in the morning. I will not diurese her.
[2019-05-20] MEDS ORDERED: PILL CUTTER 1 EACH XX PRN (13:15)
--- NOTE | 2019-05-20 14:16 | REP ---
Two-view chest: 05/20/2019. Indication: Dyspnea. Comparison: Yesterday. Findings: Compared to yesterday, the right-sided chest tube has been discontinued. There is no pneumothorax. The study is otherwise unchanged. Impression: Interval removal of the right-sided chest tube without pneumothorax. Otherwise stable examination compared to yesterday. Electronically Signed by Oniel Davis DO 05/20/2019 02:08 P
[2019-05-21] VITALS: BP 143/65
[2019-05-21] MEDS: KETOROLAC 30 MG/ML VIAL (J1885) IV SCH ×2 (01:18→06:12)
[2019-05-21] MEDS: LEVALBUTEROL 1.25 MG/0.5 ML CONCENTRATE NEB NEB SCH ×2 (01:20→08:25)
[2019-05-21 04:00] VITALS: BP 143/66
[2019-05-21 06:03] LABS: BASO % 0.3 % (0.0-1.0); EOS # 0.4 10^3/uL (0.0-0.5); EOS % 4.1 % (0.0-3.0); HEMATOCRIT 34.9 % (36.0-47.0); HEMOGLOBIN 11.4 g/dl (12.0-15.5); LYMPH # 3.7 10^3/uL (1.5-5.0); LYMPH % 38.3 % (24.0-44.0); MEAN CORPUSCULAR HEMOGLOBIN 29.8 pg (27.0-33.0); MEAN CORPUSCULAR HGB CONC 32.7 g/dl (32.0-36.5); MEAN CORPUSCULAR VOLUME 91.1 fl (80.0-96.0); MONO # 1.4 10^3/uL (0.0-0.8); MONO % 14.9 % (0.0-5.0); NEUTROPHILS % 42.1 % (36.0-66.0); PLATELET COUNT, AUTOMATED 251 10^3/uL (150-450); RED BLOOD COUNT 3.83 10^6/uL (4.00-5.40); WHITE BLOOD COUNT 9.6 10^3/uL (4.0-10.0)
[2019-05-21] MEDS: SLF 3 ML SYR IV SCH (06:13)
[2019-05-21 06:27] LABS: BLOOD UREA NITROGEN 13 MG/DL (7-18); CALCIUM LEVEL 8.8 MG/DL (8.8-10.2); CARBON DIOXIDE LEVEL 29 MEQ/L (21-32); CHLORIDE LEVEL 99 MEQ/L (98-107); CREATININE FOR GFR 0.82 MG/DL (0.55-1.30); GLOMERULAR FILTRATION RATE > 60.0 (>32); GLUCOSE, FASTING 104 MG/DL (70-100); POTASSIUM SERUM 4.9 MEQ/L (3.5-5.1); SODIUM LEVEL 133 MEQ/L (136-145)
[2019-05-21 08:00] VITALS: BP 165/74
[2019-05-21] MEDS: MOM 30ML SUSPENSION UDC PO SCH (09:00)
[2019-05-21] MEDS: HEPARIN SOD (PORCINE) 5000 UNITS/ML VIAL SC SCH (09:00)
--- NOTE | 2019-05-21 09:17 | REP ---
CHEST, TWO VIEWS: COMPARISON: 05/20/2019. Mild streaky bilateral opacities are stable. There is elevation of the right hemidiaphragm unchanged. Heart and mediastinum are unchanged. IMPRESSION: Stable exam. Electronically Signed by Nagi Kong MD 05/21/2019 03:41 P
[2019-05-21] MEDS: DOCUSATE SODIUM 100 MG CAP PO SCH (10:46)
[2019-05-21] MEDS: PANTOPRAZOLE 40MG TAB (PROTONIX) PO SCH (10:46)
[2019-05-21] MEDS: VENLAFAXINE **XR** 37.5 MG CAPSULE PO SCH (10:47)
[2019-05-21] MEDS: VITAMIN D 1,000 INTERNATIONAL UNITS TABLET PO SCH (10:47)
[2019-05-21] MEDS: aMILoride 5 MG TAB PO SCH (10:47)
[2019-05-21] MEDS: CYANOCOBALAMIN 500 MCG TAB PO SCH (10:47)
[2019-05-21 10:48] VITALS: BP 140/72
[2019-05-21] MEDS: LOSARTAN 50 MG TAB PO SCH (10:48)
[2019-05-21] MEDS: ASCORBIC ACID 500 MG TAB PO SCH (10:48)
[2019-05-21] MEDS: NEBIVOLOL 5 MG TAB (BYSTOLIC) PO SCH (10:48)
== END 2019-05-21 13:10 | disposition home or self-care (01) | DRG 271 ==
LOC: M OR 06:23 → M ICU 14:20 → M PCU 05-17 16:57
PROVIDERS: ADMIT Thoracic Surgery (Cardiothoracic Vascular Surgery); ATTEND Thoracic Surgery (Cardiothoracic Vascular Surgery)
PROC: 0BJQ4ZZ Inspection of Pleura, Percutaneous Endoscopic Approach (ICD-10-PCS; 2019-05-16)
PROC: 02BN4ZX Excision of Pericardium, Percutaneous Endoscopic Approach, Diagnostic (ICD-10-PCS; principal; 2019-05-16 08:30)
DX: I31.8 Other specified diseases of pericardium (principal); C91.11 Chronic lymphocytic leukemia of B-cell type in remission; I10 Essential (primary) hypertension; F32.9 Major depressive disorder, single episode, unspecified; K21.9 Gastro-esophageal reflux disease without esophagitis

== ENCOUNTER → 2019-06-28 | Outpatient (CLI) | payer MEDICARE ==
[~2019-06-28] MED LIST changes: +HYDR-4571 PO; -LIDOCAINE 1% MDV 20ML VIAL SQ PRN; -LR 1,000 ML IV ONE; -MUPIROCIN 2% OINT 22 GM TUBE TOP ONE; -ceFAZolin SOD 2 GM in IV 1 EA IV ONE
[2019-06-28 15:43] LABS: BASO % 0.3 % (0.0-1.0); EOS # 0.2 10^3/uL (0.0-0.5); EOS % 2.7 % (0.0-3.0); HEMATOCRIT 35.8 % (36.0-47.0); HEMOGLOBIN 11.1 g/dl (12.0-15.5); LYMPH # 4.2 10^3/uL (1.5-5.0); LYMPH % 46.3 % (24.0-44.0); MEAN CORPUSCULAR HEMOGLOBIN 29.2 pg (27.0-33.0); MEAN CORPUSCULAR VOLUME 94.2 fl (80.0-96.0); MONO # 1.1 10^3/uL (0.0-0.8); MONO % 12.5 % (0.0-5.0); NEUTROPHILS # 3.4 10^3/uL (1.5-8.5); NEUTROPHILS % 37.9 % (36.0-66.0); PLATELET COUNT, AUTOMATED 260 10^3/uL (150-450)
[2019-06-28 16:08] LABS: ALBUMIN 3.8 GM/DL (3.2-5.2); ALT/SGPT 22 U/L (12-78); BILIRUBIN,TOTAL 0.3 MG/DL (0.2-1.0); BLOOD UREA NITROGEN 24 MG/DL (7-18); CALCIUM LEVEL 8.3 MG/DL (8.8-10.2); CARBON DIOXIDE LEVEL 30 MEQ/L (21-32); CHLORIDE LEVEL 106 MEQ/L (98-107); CREATININE FOR GFR 0.77 MG/DL (0.55-1.30); GLOMERULAR FILTRATION RATE > 60.0 (>32); GLUCOSE, FASTING 85 MG/DL (70-100); LDH LACTATE DEHYDROGENASE 194 U/L (84-246); POTASSIUM SERUM 4.2 MEQ/L (3.5-5.1); SODIUM LEVEL 139 MEQ/L (136-145); TOTAL PROTEIN 6.3 GM/DL (6.4-8.2)
== END ==
LOC: M LAB 14:56
PROVIDERS: ATTEND Internal Medicine Hematology & Oncology
DX: D72.820 Lymphocytosis (symptomatic) (principal)

== ENCOUNTER → 2020-07-17 | Outpatient (CLI) | payer MEDICARE ==
[~2020-07-17] MED LIST changes: -MAGNSOL18 PO; +MAGNSOL2 PO; +VITA-243 PO; -VITA500T PO
--- NOTE | 2020-07-19 12:24 | ECHO ---
DATE OF PROCEDURE: 07/17/2020 Age: 80 Gender: Female Height: Weight: REFERRING PHYSICIAN: YARON Quan REASON FOR STUDY: Chest pain, unspecified. 2D MEASUREMENTS: IVS 1.3 cm LV 4.2 cm LVPW 0.82 cm LA 3.4 cm Aorta 3.3 cm IVC 0.8 cm DOPPLER MEASUREMENT Peak velocity across the aortic valve 1.3 msec Peak velocity across the LVOT 0.82 msec Mitral E 0.63 Mitral A 0.92 with a ratio of 0.7 2D COMMENTS: * Normal left ventricular size with probably mildly increased left ventricular wall thickness. Left ventricular systolic function is normal, estimated at 60% to 65%. * Normal left atrium. Normal right atrium and right ventricle. * The atrial septum appeared to be normal without evidence of defect or shunt. * Normal aortic root. * A small pericardial effusion was noted. No evidence of cardiac tamponade. * Mildly calcified aortic valve with normal leaflet excursion. Mildly calcified mitral annulus with normal anterior mitral valve leaflet motion. Normal tricuspid valve and pulmonic valve. The proximal pulmonary artery branches were not well visualized. * The inferior vena cava was normal in size, central venous pressure is most likely normal. DOPPLER: Only mild mitral regurgitation and mild aortic regurgitation detected. Abnormal relaxation pattern was noted across the mitral valve leaflets, as well as the mitral valve annulus consistent with features of grade 1 left ventricular diastolic dysfunction. IMPRESSION: * Normal global left ventricular systolic function with probably mild concentric left ventricular hypertrophy. There are some features of left ventricular diastolic dysfunction manifested by abnormal relaxation. * Aortic valve sclerosis with mild aortic regurgitation, but no aortic stenosis. * Mitral annular calcification with mild mitral regurgitation. * A small pericardial effusion was noted, no evidence of cardiac tamponade. [facility]
== END ==
LOC: M CARPUL 09:22
PROVIDERS: ATTEND Physician Assistant
DX: R07.9 Chest pain, unspecified (principal)

== ENCOUNTER → 2020-10-25 | Outpatient (CLI) | payer MEDICARE ==
--- NOTE | 2020-10-25 15:04 | REP ---
INDICATION: LOW BACK PAIN, RIGHT FOOT PAIN. COMPARISON: None. TECHNIQUE: There are 7 views including lateral flexion and extension views. FINDINGS: Vertebral body heights are normal. There is disc space narrowing at every lumbar level indicating multilevel degenerative disc disease throughout the lumbar spine. This is most advanced at L 1-2 and L5-S1. There is grade 1/2 anterolisthesis of L4 on L5. There is no spondylolysis, therefore, this is likely degenerative. There is grade 1 retrolisthesis of L3 on L4. This is also likely degenerative. On the flexion view there is no change in the L3-4 retrolisthesis or the L4-5 anterolisthesis. On the extension view the L3-4 retrolisthesis corrects is no longer present. There is no change in the L4-5 anterolisthesis. The pedicles are unremarkable. There is osteoarthritis in the posterior facets. The sacroiliac articulations are unremarkable. There is mild scoliosis convex right. There is diffuse demineralization. There are surgical clips in the abdominal right upper quadrant. IMPRESSION: There is retrolisthesis at L3-4 and anterolisthesis at L4-5 as described including findings at flexion and is extension as described. There is mild lumbar scoliosis convex right. There is facet osteoarthritis. There is degenerative disc disease throughout the lumbar spine, most advanced at L1-2 and L5-S1. <Electronically signed by Nagi Ledesma > 10/25/20 [id number]
--- NOTE | 2020-10-25 15:08 | REP ---
INDICATION: LOW BACK PAIN, RIGHT FOOT PAIN COMPARISON: None. TECHNIQUE: There are four views. FINDINGS: There is joint space narrowing of the PIP and DIP articulations and of the tarsal ossicles compatible with mild osteoarthritis. There is no fracture or dislocation. There are no calcifications or foreign bodies. There are no calcaneal spurs. IMPRESSION: Osteoarthritis as described. <Electronically signed by Nagi Ledesma > 10/25/20 [id number]
== END ==
LOC: M WUC 13:22
PROVIDERS: ATTEND Physician Assistant
DX: M43.16 Spondylolisthesis, lumbar region (principal); M41.9 Scoliosis, unspecified; M47.817 Spondylosis without myelopathy or radiculopathy, lumbosacral region; M51.36 Other intervertebral disc degeneration, lumbar region; M51.37 Other intervertebral disc degeneration, lumbosacral region; M19.071 Primary osteoarthritis, right ankle and foot; M79.671 Pain in right foot

== ENCOUNTER → 2020-12-11 | Outpatient (CLI) | payer MEDICARE ==
--- NOTE | 2020-12-12 10:53 | REP ---
INDICATION: POSTLAMINECTOMY SYNDROME, NOT ELSEWHERE CLASSIFIED. Left leg tingling and foot cramps. COMPARISON: Comparison MRI study is from June 19, 2015.. TECHNIQUE: Sagittal and axial T1 and T2-weighted scans are acquired in the usual fashion with and without fat saturation. Sequences include spin echo, turbo spin-echo, and STIR imaging sequences. FINDINGS: Lumbar vertebral body heights are preserved. There is a hemangioma in the L1 vertebral body again noted unchanged. No bony destructive lesion is seen. There are some reactive marrow changes associated with degenerative disc disease mild in degree at L5-S1 and L1-2. The tip of the conus medullaris is normal in position and appearance at the L1-2 disc level unchanged. No extra vertebral abnormality is observed. Normal caliber aorta is seen. There is mild central disc bulging noted incidentally at the T11-12 and T12-L1 disc spaces. This is slightly more prominent than on the prior study. At L1-L2, axial and sagittal images demonstrate diffuse moderate disc bulging indenting the ventral margin of the thecal sac. This is slightly more pronounced than on the prior study but not new. No overall cauda equina compression is seen. No nerve root compression is appreciated. At L2-L3, there is degenerative disc narrowing. Diffuse disc bulging is seen and there is moderate central canal stenosis at the L2-3 level due to diffuse disc bulging, ligamentum flavum hypertrophy and facet hypertrophy, and developmentally short pedicles. The midline AP dimension of the thecal sac at this level is 5 mm. There is left-sided neural foraminal narrowing at L2-3 due to facet hypertrophy and disc bulging. The previous study showed a moderate-sized left central disc protrusion with cranial extrusion. This is resolved. The focal disc protrusion is no longer seen. At L3-L4, there is a small left paracentral disc protrusion again seen compressing the left ventral margin of the thecal sac. Mild central canal stenosis is noted. These findings are unchanged. Moderate ligamentum flavum at hypertrophy and facet hypertrophy contribute to the central canal stenosis. The left facet hypertrophy is a little more prominent than it was in 2015. No nerve root compression is appreciated. At L4-5, there is a 6 mm grade 1 degenerative spondylolisthesis. Degenerative disc narrowing is seen with diffuse disc bulging. The previous study showed 5 mm of spondylolisthesis. No nerve root compression is seen. There is moderate central canal stenosis present however at L4-5. The midline AP dimension of the thecal sac is 4.5 mm. The spinal stenosis at L4-5 is more prominent on today's images than on the prior study due to progressive ligamentum flavum and facet hypertrophy and slightly more prominent a diffuse disc bulging. CSF signal is effaced from the thecal sac at this level on T2 weighted scans. At the L5-S1 level, there is no focal disc protrusion, spinal stenosis, or foraminal narrowing. There is a 2.7 cm perineural cyst in the 2nd sacral segment again seen unchanged. IMPRESSION: Progressive degenerative spondylosis. There is moderate central canal stenosis at L4-5 more prominent than on the prior study. There is a small stable left paracentral disc protrusion at L3-4. The previously noted left paracentral disc extrusion at L2-3 is resolved but there is moderate central canal stenosis at L2-3 today due to diffuse disc bulging in combination with ligamentum flavum and facet hypertrophy. <Electronically signed by Moustapha Johnson > 12/12/20 [id number]
== END ==
LOC: M RAD 17:46
PROVIDERS: ATTEND Pain Medicine Interventional Pain Medicine
DX: M96.1 Postlaminectomy syndrome, not elsewhere classified (principal)

== ENCOUNTER → 2021-05-02 | Outpatient (CLI) | payer MEDICARE ==
--- NOTE | 2021-05-02 11:54 | REPMRS ---
"Patient History The patient states she has not had a clinical breast exam in over a year. Family history of colorectal cancer at age 68 in mother, pancreatic cancer at age 66 in brother, unknown cancer at age 50 or over in paternal grandmother, ovarian cancer at age 38 in paternal aunt, colorectal cancer at age 50 or over in maternal grandfather. Taking estrogen for 32 years. No breast complaints today Patient signed the MRS sheet 1st covid vaccine 09/12/20-left arm-Moderna 2nd covid vaccine 10/10/20-left arm Most recent mammos done @ [facility] on P[facility] Patient Identification Verified Digital Woman Screen Mammo: May 02, 2021 - Exam #: [id number] Bilateral CC and MLO view(s) were taken. Technologist: Yee Ramírez, Technologist Prior study comparison: April 10, 2020, bilateral digital mammo screening bilat, performed at [facility]. December 13, 2018, bilateral digital mammo screening bilat, performed at [facility]. November 18, 2017, bilateral digital mammo screening bilat, performed at [facility]. FINDINGS: There are scattered fibroglandular densities. The Volpara volumetric breast density category is:B. There has been no change in the appearance of the mammogram from the prior studies. There is a mild amount of scattered fibroglandular density which is fairly symmetric. There is no interval development of dominant mass, architectural distortion, or grouped microcalcification suggestive of malignancy. 3-D tomosynthesis shows no additional findings. Assessment: BI-RADS/ACR category 1 mammogram. Negative Mammogram. Recommendation Routine screening mammogram of both breasts in 1 year (for women over age 40). This patient's [facility] Lifetime Breast Cancer Risk is estimated at .07 %. This mammogram was interpreted with the aid of an FDA-approved computer-aided dectection system. Electronically Signed By: Moustapha Johnson MD 05/02/21 [id number]"
== END ==
LOC: M WHC 10:52
PROVIDERS: ATTEND Family Medicine
DX: Z12.31 Encounter for screening mammogram for malignant neoplasm of breast (principal)

== ENCOUNTER → 2021-07-10 | Outpatient (CLI) | payer MEDICARE ==
[2021-07-10 16:22] LABS: BASO % 0.2 % (0.0-1.0); EOS # 0.2 10^3/uL (0.0-0.5); EOS % 2.3 % (0.0-3.0); HEMATOCRIT 37.7 % (36.0-47.0); HEMOGLOBIN 11.9 g/dl (12.0-15.5); LYMPH # 5.3 10^3/uL (1.5-5.0); LYMPH % 57.3 % (24.0-44.0); MEAN CORPUSCULAR HEMOGLOBIN 29.7 pg (27.0-33.0); MEAN CORPUSCULAR HGB CONC 31.6 g/dl (32.0-36.5); MONO # 0.9 10^3/uL (0.0-0.8); MONO % 9.9 % (2.0-8.0); NEUTROPHILS # 2.8 10^3/uL (1.5-8.5); NEUTROPHILS % 30.2 % (36.0-66.0); PLATELET COUNT, AUTOMATED 258 10^3/uL (150-450); RED BLOOD COUNT 4.01 10^6/uL (4.00-5.40); WHITE BLOOD COUNT 9.3 10^3/uL (4.0-10.0)
[2021-07-10 17:05] LABS: HEMOGLOBIN A1c 5.9 %
[2021-07-10 17:16] LABS: ERYTHROCYTE SEDIMENTATION RATE 16 mm/hr (0-30)
[2021-07-10 17:26] LABS: ALBUMIN 4.3 GM/DL (3.2-5.2); ALT/SGPT 22 U/L (12-78); BILIRUBIN,TOTAL 0.4 MG/DL (0.2-1.0); BLOOD UREA NITROGEN 22 MG/DL (7-18); C REACTIVE PROTEIN QUANTITATIV 1.23 MG/DL (0.00-0.30); CALCIUM LEVEL 9.3 MG/DL (8.8-10.2); CARBON DIOXIDE LEVEL 29 MEQ/L (21-32); CHLORIDE LEVEL 105 MEQ/L (98-107); CHOLESTEROL LEVEL 223 MG/DL (<200); CHOLESTEROL RISK RATIO 2.397 (<5); CREATININE FOR GFR 0.87 MG/DL (0.55-1.30); FOLATE 12.6 NG/ML; FREE T4 1.06 NG/DL (0.76-1.46); GLOMERULAR FILTRATION RATE > 60.0 (>32); GLUCOSE, FASTING 99 MG/DL (70-100); HDL CHOLESTEROL 93 MG/DL (>40); LDL CHOLESTEROL 110 MG/DL (<100); NON-HDL-C 130 MG/DL; SODIUM LEVEL 140 MEQ/L (136-145); TOTAL PROTEIN 7.2 GM/DL (6.4-8.2); TRIGLYCERIDES LEVEL 101 MG/DL (<150); VITAMIN B12 LEVEL 1417 PG/ML
== END ==
LOC: M PLALAB 12:03
PROVIDERS: ATTEND Physician Assistant
DX: F41.1 Generalized anxiety disorder (principal); R73.03 Prediabetes; G43.109 Migraine with aura, not intractable, without status migrainosus; I12.9 Hypertensive chronic kidney disease with stage 1 through stage 4 chronic kidney disease, or unspecified chronic kidney disease

== ENCOUNTER → 2022-06-27 | Outpatient (CLI) | payer MEDICARE ==
[~2022-06-27] MED LIST changes: +LOSA50TA28 PO; -LOSA50TA88 PO
== END ==
LOC: M WHC 10:58
PROVIDERS: ATTEND Nurse Practitioner Adult Health
DX: Z12.31 Encounter for screening mammogram for malignant neoplasm of breast (principal)

== ENCOUNTER → 2023-01-08 | Outpatient (CLI) | payer MEDICARE ==
[~2023-01-08] MED LIST changes: +ISOVUE-370 76% 100ML VIAL ONE
== END ==
LOC: M PLAIMG 10:02
PROVIDERS: ATTEND Nurse Practitioner Adult Health
DX: R49.9 Unspecified voice and resonance disorder (principal); R09.89 Other specified symptoms and signs involving the circulatory and respiratory systems
CPT/HCPCS: 70491; Q9967

== ENCOUNTER → 2023-03-05 | Outpatient (CLI) | payer MEDICARE ==
[~2023-03-05] MED LIST changes: -ISOVUE-370 76% 100ML VIAL ONE
[2023-03-05 13:32] LABS: BASO % 0.4 % (0.0-1.0); EOS # 0.2 10^3/uL (0.0-0.5); HEMATOCRIT 35.5 % (36.0-47.0); HEMOGLOBIN 11.5 g/dl (12.0-15.5); LYMPH # 5.9 10^3/uL (1.5-5.0); LYMPH % 57.1 % (24.0-44.0); MEAN CORPUSCULAR HEMOGLOBIN 29.6 pg (27.0-33.0); MEAN CORPUSCULAR HGB CONC 32.4 g/dl (32.0-36.5); MEAN CORPUSCULAR VOLUME 91.3 fl (80.0-96.0); MONO # 1.2 10^3/uL (0.0-0.8); MONO % 11.8 % (2.0-8.0); NEUTROPHILS # 2.9 10^3/uL (1.5-8.5); NEUTROPHILS % 28.3 % (36.0-66.0); PLATELET COUNT, AUTOMATED 240 10^3/uL (150-450); RED BLOOD COUNT 3.89 10^6/uL (4.00-5.40); WHITE BLOOD COUNT 10.3 10^3/uL (4.0-10.0)
[2023-03-05 13:59] LABS: HEMOGLOBIN A1c 6.1 % (4.0-6.0)
[2023-03-05 14:11] LABS: ALBUMIN 4.2 G/DL (3.2-5.2); ALKALINE PHOSPHATASE 87 U/L (46-116); ALT/SGPT 13 U/L (7.0-40); AST/SGOT 8 U/L (<34); BILIRUBIN,TOTAL 0.6 MG/DL (0.3-1.2); BLOOD UREA NITROGEN 22 MG/DL (9-23); CALCIUM LEVEL 9.6 MG/DL (8.3-10.6); CARBON DIOXIDE LEVEL 27 MMOL/L (20-31); CHLORIDE LEVEL 100 MMOL/L (98-107); CHOLESTEROL LEVEL 207 MG/DL (<200); CHOLESTEROL RISK RATIO 2.29 (<5); CREATININE FOR GFR 0.81 MG/DL (0.55-1.30); GLOMERULAR FILTRATION RATE > 60.0 (>32); GLUCOSE, FASTING 100 MG/DL (74-106); HDL CHOLESTEROL 90.3 MG/DL (>40); LDL CHOLESTEROL 104.7 MG/DL (<100); NON-HDL-C 116.7 MG/DL; POTASSIUM SERUM 5.4 MMOL/L (3.5-5.1); SODIUM LEVEL 136 MMOL/L (136-145); THYROID STIMULATING HORMONE 1.329 uIU/ML (0.55-4.78); TOTAL PROTEIN 6.8 G/DL (5.7-8.2); TRIGLYCERIDES LEVEL 60 MG/DL (<150)
[2023-03-05 14:12] LABS: FOLATE 16.28 NG/ML (>5.4); TOTAL 25(OH) VITAMIN D 64.7 NG/ML (20.0-100.0)
[2023-03-05 14:13] LABS: FREE T4 1.04 NG/DL (0.89-1.76); VITAMIN B12 LEVEL 791 PG/ML (211-911)
== END ==
LOC: M PLALAB 11:39
PROVIDERS: ATTEND Nurse Practitioner Adult Health
DX: R73.03 Prediabetes (principal); E55.9 Vitamin D deficiency, unspecified; I12.9 Hypertensive chronic kidney disease with stage 1 through stage 4 chronic kidney disease, or unspecified chronic kidney disease; D51.9 Vitamin B12 deficiency anemia, unspecified

== ENCOUNTER → 2023-05-28 | Outpatient (CLI) | payer MEDICARE | LOC: M PLAIMG 14:37 | PROVIDERS: ATTEND Nurse Practitioner Adult Health | DX: R10.2 Pelvic and perineal pain (principal); M25.552 Pain in left hip; M65.28 Calcific tendinitis, other site ==

== ENCOUNTER → 2025-04-17 | Outpatient (CLI) | payer MEDICARE ==
[~2025-04-17] MED LIST changes: -BIOT1000 PO; +BIOT10002 PO; +TURM1CAP7 PO; -TURM500C3 PO
== END ==
LOC: M PLAIMG 16:36
PROVIDERS: ATTEND Family Medicine
DX: M54.41 Lumbago with sciatica, right side (principal); M25.562 Pain in left knee; M17.12 Unilateral primary osteoarthritis, left knee; M47.812 Spondylosis without myelopathy or radiculopathy, cervical region